=== PATIENT | male | born 1975 | race Caucasian/White ===

== ENCOUNTER 2017-07-20 16:06 | Emergency (ER) | payer SELFPAY ==
[~2017-07-20] VITALS: Wt 72.6 kg
[~2017-07-20 16:06] MED LIST: AMOXICILLIN500 MG PO; ANAPROX DS550 MG PO; AUGMENTIN 875 M1 TAB PO; CLEOCIN150 MG PO; CLINDAMYCIN HC300 MG PO; DOXYCYCLINE MO100 MG PO; FLEXERIL10 MG PO; IBU800 M1 PO; MEDROL DOSEPAK4 MG PO; MOTRIN800 MG; MOTRIN800 MG PO; Motrin,Rufen800 MG PO; NEURONTIN100 MG PO; NKHM; PEN-VEE K500 MG PO; PHENERGAN W/DM120 ML PO; PREDNICOT20 MG PO; SEPTRA DS 800 M1 TAB PO; TRAMADOL HCL50 MG; TRAMADOL HCL50 MG PO; TRIMOX500 MG PO; ULTRAM50 MG PO; VOLTAREN50 M1 PO; ZYRTEC10 MG PO
[2017-07-20 16:40] LABS: BASO % 0.1 % (0.0-1.0); EOS % 0.2 % (1.0-4.0); HEMATOCRIT 41.5 % (42.0-52.0); HEMOGLOBIN 13.5 g/dl (14.0-18.0); LYMPH % 21.6 % (27.0-41.0); MEAN CELL VOLUME 88.1 fl (80.0-94.0); MEAN CORPUSCULAR HGB 28.7 pg (27.0-31.0); MEAN CORPUSCULAR HGB CONC 32.5 g/dl (33.0-37.0); MEAN PLATELET VOLUME 9.7 fl (9.6-12.3); MONO # 0.7 10*3/uL (0.1-1.0); NEUT # 6.4 10*3/uL (2.3-7.9); NEUT % 69.7 % (47.0-73.0); PLATELET COUNT AUTOMATED 392 10*3/uL (130-400); RED BLOOD COUNT 4.71 10*6/uL (4.50-5.90); RED CELL DISTRI WIDTH 15.3 % (0-14.5); WHITE BLOOD COUNT 9.2 10*3/uL (4.8-10.8)
[2017-07-20 16:55] LABS: ALBUMIN 3.7 gm/dl (3.1-4.5); ALKALINE PHOSPHATASE 226 U/L (45-117); BUN 8 mg/dl (7-24); CHLORIDE 99 mmol/L (98-107); CREATININE 0.97 mg/dL (0.70-1.30); POTASSIUM 4.1 mmol/L (3.5-5.1); SGOT/AST 36 IU/L (3-35); SGPT/ALT 105 U/L (12-78); SODIUM 136 mmol/L (136-145); TOTAL PROTEIN 8.2 gm/dL (6.4-8.2)
[2017-07-20 16:58] LABS: LIPASE 78 U/L (73-393)
[2017-07-20 17:23] LABS: BILIRUBIN NEGATIVE (NEGATIVE); BLOOD TRACE-LYSED (NEGATIVE); CLARITY CLEAR (CLEAR); COLOR YELLOW (YELLOW); GLUCOSE NEGATIVE (NEGATIVE); KETONE NEGATIVE (NEGATIVE); LEUKO ESTERASE NEGATIVE (NEGATIVE); NITRITE NEGATIVE (NEGATIVE); PH 6.5 (5.0-9.0); SPECIFIC GRAVITY <= 1.005 (1.005-1.030); UROBILINOGEN 0.2 E.U./dl (0.2-1.0)
[2017-07-20] MEDS ORDERED: ZOFRAN ODT4 MG SL (17:51)
== END 2017-07-20 17:51 | disposition home or self-care (01) ==
LOC: ED 16:06
PROVIDERS: Nurse Practitioner Family
DX: A08.4 Viral intestinal infection, unspecified (principal); F17.200 Nicotine dependence, unspecified, uncomplicated; Z88.8 Allergy status to other drugs, medicaments and biological substances

== ENCOUNTER → 2017-08-16 | Outpatient (CLI) | payer SELFPAY ==
[~2017-08-16] MED LIST changes: +ZOFRAN ODT4 MG SL
[2017-08-16 10:00] LABS: URINE AMPHETAMINES < 1000 (1000ng/ml); URINE BARBITURATES < 200 (200ng/ml); URINE BENZODIAZEPINES < 200 (200ng/ml); URINE CANNABINOIDS (THC) < 50 (50ng/ml); URINE COCAINE < 300 (300ng/ml); URINE METHADONE < 300 (300ng/ml); URINE OPIATES < 300 (300ng/ml); URINE PHENCYCLIDINE < 25 (25ng/ml)
[2017-08-16 10:27] LABS: FREE T4 1.14 ng/dl (0.76-1.46)
[2017-08-16 10:32] LABS: THYROID STIM HORMONE (HS) 0.851 uIU/ml (0.358-4.75)
== END | disposition home or self-care (01) ==
LOC: LAB 09:11
PROVIDERS: Nurse Practitioner Family
DX: Z51.81 Encounter for therapeutic drug level monitoring (principal); Z79.01 Long term (current) use of anticoagulants

== ENCOUNTER 2017-12-06 13:18 | Emergency (ER) | payer SELFPAY ==
[~2017-12-06] VITALS: Ht 187.9 cm; Wt 68.5 kg
[2017-12-06 13:49] LABS: BASO # 0.1 10*3/uL (0.0-0.1); BASO % 0.6 % (0.0-1.0); EOS % 0.2 % (1.0-4.0); HEMATOCRIT 39.3 % (42.0-52.0); HEMOGLOBIN 12.8 g/dl (14.0-18.0); LYMPH # 2.4 10*3/uL (1.3-4.4); LYMPH % 29.7 % (27.0-41.0); MEAN CELL VOLUME 89.1 fl (80.0-94.0); MEAN CORPUSCULAR HGB CONC 32.6 g/dl (33.0-37.0); MONO # 0.5 10*3/uL (0.1-1.0); MONO % 5.7 % (3.0-9.0); NEUT # 5.1 10*3/uL (2.3-7.9); NEUT % 63.4 % (47.0-73.0); PLATELET COUNT AUTOMATED 408 10*3/uL (130-400); RED BLOOD COUNT 4.41 10*6/uL (4.50-5.90); RED CELL DISTRI WIDTH 13.7 % (0-14.5); WHITE BLOOD COUNT 8.1 10*3/uL (4.8-10.8)
[2017-12-06 14:05] LABS: ALBUMIN 3.6 gm/dl (3.1-4.5); ALKALINE PHOSPHATASE 110 U/L (45-117); BUN 8 mg/dl (7-24); CHLORIDE 103 mmol/L (98-107); POTASSIUM 3.7 mmol/L (3.5-5.1); SGOT/AST 15 IU/L (3-35); SGPT/ALT 18 U/L (12-78); SODIUM 138 mmol/L (136-145); TOTAL PROTEIN 7.8 gm/dL (6.4-8.2)
[2017-12-06 14:05] LABS: BILIRUBIN NEGATIVE (NEGATIVE); BLOOD TRACE-INTACT (NEGATIVE); CLARITY CLEAR (CLEAR); COLOR YELLOW (YELLOW); GLUCOSE NEGATIVE (NEGATIVE); KETONE NEGATIVE (NEGATIVE); LEUKO ESTERASE NEGATIVE (NEGATIVE); NITRITE NEGATIVE (NEGATIVE); PH 5.5 (5.0-9.0); SPECIFIC GRAVITY <= 1.005 (1.005-1.030); UROBILINOGEN 0.2 E.U./dl (0.2-1.0)
[2017-12-06 14:13] LABS: URINE AMPHETAMINES < 1000 (1000ng/ml); URINE BARBITURATES < 200 (200ng/ml); URINE BENZODIAZEPINES > 200 (200ng/ml); URINE CANNABINOIDS (THC) < 50 (50ng/ml); URINE COCAINE < 300 (300ng/ml); URINE METHADONE < 300 (300ng/ml); URINE OPIATES < 300 (300ng/ml)
[2017-12-06 14:14] LABS: URINE PHENCYCLIDINE < 25 (25ng/ml)
[2017-12-06 14:26] LABS: RBC 0-2 rbc/hpf (0-2); WBC 0-2 wbc/hpf (0-5)
[2017-12-06] MEDS ORDERED: ROBAXIN500 M1 PO (14:46)
== END 2017-12-06 15:00 | disposition home or self-care (01) ==
LOC: ED 13:18
PROVIDERS: Nurse Practitioner Family
DX: M62.838 Other muscle spasm (principal); M79.601 Pain in right arm; M79.602 Pain in left arm; F17.200 Nicotine dependence, unspecified, uncomplicated; Z88.8 Allergy status to other drugs, medicaments and biological substances

== ENCOUNTER 2018-07-12 09:21 | Emergency (ER) | payer SELFPAY ==
[~2018-07-12] VITALS: Ht 187.9 cm; Wt 74.8 kg
[~2018-07-12 09:21] MED LIST changes: +ROBAXIN500 M1 PO
[2018-07-12 10:00] LABS: BASO % 0.3 % (0.0-1.0); EOS # 0.1 10*3/uL (0.0-0.4); EOS % 1.5 % (1.0-4.0); HEMATOCRIT 37.2 % (42.0-52.0); LYMPH # 2.7 10*3/uL (1.3-4.4); LYMPH % 29.8 % (27.0-41.0); MEAN CELL VOLUME 89.6 fl (80.0-94.0); MEAN CORPUSCULAR HGB 28.9 pg (27.0-31.0); MEAN CORPUSCULAR HGB CONC 32.3 g/dl (33.0-37.0); MEAN PLATELET VOLUME 9.7 fl (9.6-12.3); MONO # 0.8 10*3/uL (0.1-1.0); MONO % 8.2 % (3.0-9.0); NEUT # 5.5 10*3/uL (2.3-7.9); NEUT % 59.8 % (47.0-73.0); PLATELET COUNT AUTOMATED 322 10*3/uL (130-400); RED BLOOD COUNT 4.15 10*6/uL (4.50-5.90); WHITE BLOOD COUNT 9.1 10*3/uL (4.8-10.8)
[2018-07-12 10:08] LABS: ALBUMIN 3.1 gm/dl (3.1-4.5); ALKALINE PHOSPHATASE 113 U/L (45-117); BUN 11 mg/dl (7-24); CHLORIDE 105 mmol/L (98-107); CREATININE 0.79 mg/dL (0.70-1.30); LIPASE 51 U/L (73-393); POTASSIUM 3.7 mmol/L (3.5-5.1); SGOT/AST 20 IU/L (3-35); SGPT/ALT 31 U/L (12-78); SODIUM 139 mmol/L (136-145)
[2018-07-12 11:31] LABS: BILIRUBIN NEGATIVE (NEGATIVE); BLOOD 2+ (NEGATIVE); CLARITY CLEAR (CLEAR); COLOR YELLOW (YELLOW); GLUCOSE NEGATIVE (NEGATIVE); KETONE NEGATIVE (NEGATIVE); LEUKO ESTERASE NEGATIVE (NEGATIVE); NITRITE NEGATIVE (NEGATIVE); SPECIFIC GRAVITY <= 1.005 (1.005-1.030); UROBILINOGEN 0.2 E.U./dl (0.2-1.0)
[2018-07-12] MEDS ORDERED: ANUSOL-HC25 MG R (11:52)
[2018-07-12] MEDS ORDERED: MIRALAX POWDER17 G1 PO (11:52)
== END 2018-07-12 12:14 | disposition home or self-care (01) ==
LOC: ED 09:21
PROVIDERS: Nurse Practitioner Family
DX: K64.4 Residual hemorrhoidal skin tags (principal); K59.00 Constipation, unspecified; R30.0 Dysuria; Z87.442 Personal history of urinary calculi; Z88.8 Allergy status to other drugs, medicaments and biological substances

== ENCOUNTER 2019-02-08 11:04 | Emergency (ER) | payer SELFPAY ==
[~2019-02-08] VITALS: Ht 187.9 cm; Wt 70.3 kg
[~2019-02-08 11:04] MED LIST changes: +ANUSOL-HC25 MG R; +MIRALAX POWDER17 G1 PO
[2019-02-08] MEDS ORDERED: PREDNISONE50 MG PO (12:53)
[2019-02-08] MEDS ORDERED: CYCLOBENZAPRINE10 MG PO (12:53)
[2019-02-08] MEDS ORDERED: IBU800 MG PO (12:53)
== END 2019-02-08 12:53 | disposition home or self-care (01) ==
LOC: ED 11:04
DX: M54.5 Low back pain (principal); Z88.8 Allergy status to other drugs, medicaments and biological substances

== ENCOUNTER 2019-02-25 23:28 | Emergency (ER) | payer SELFPAY ==
[~2019-02-25] VITALS: Ht 187.9 cm; Wt 70.3 kg
[~2019-02-25 23:28] MED LIST changes: +CYCLOBENZAPRINE10 MG PO; +IBU800 MG PO; +PREDNISONE50 MG PO
[2019-02-26 01:48] LABS: BILIRUBIN NEGATIVE (NEGATIVE); BLOOD 1+ (NEGATIVE); CLARITY CLEAR (CLEAR); COLOR YELLOW (YELLOW); GLUCOSE NEGATIVE (NEGATIVE); KETONE NEGATIVE (NEGATIVE); LEUKO ESTERASE NEGATIVE (NEGATIVE); NITRITE NEGATIVE (NEGATIVE); SPECIFIC GRAVITY >= 1.030 (1.005-1.030); UROBILINOGEN 0.2 E.U./dl (0.2-1.0)
[2019-02-26 01:58] LABS: BACTERIA 1+; MUCOUS TRACE
[2019-02-26] MEDS ORDERED: ROBAXIN-750750 MG PO (02:12)
== END 2019-02-26 02:35 | disposition home or self-care (01) ==
LOC: ED 23:28
PROVIDERS: Nurse Practitioner Family
DX: M54.5 Low back pain (principal); Z88.8 Allergy status to other drugs, medicaments and biological substances

== ENCOUNTER 2020-07-26 18:36 | Inpatient (IN) | payer SELFPAY ==
[~2020-07-26] VITALS: Ht 187.9 cm; Wt 51.0 kg
[~2020-07-26 18:36] MED LIST changes: +ROBAXIN-750750 MG PO
[2020-07-26 18:47] VITALS: BP 117/80
[2020-07-26 19:01] LABS: BASO % 0.4 % (0.0-1.0); EOS % 0.2 % (1.0-4.0); HEMATOCRIT 43.3 % (42.0-52.0); LYMPH # 2.6 10*3/uL (1.3-4.4); LYMPH % 25.1 % (27.0-41.0); MEAN CELL VOLUME 87.3 fl (80.0-94.0); MEAN CORPUSCULAR HGB 27.4 pg (27.0-31.0); MEAN CORPUSCULAR HGB CONC 31.4 g/dl (33.0-37.0); MEAN PLATELET VOLUME 11.1 fl (9.6-12.3); MONO # 0.6 10*3/uL (0.1-1.0); MONO % 5.8 % (3.0-9.0); NEUT % 68.2 % (47.0-73.0); PLATELET COUNT AUTOMATED 371 10*3/uL (130-400); RED BLOOD COUNT 4.96 10*6/uL (4.50-5.90); WHITE BLOOD COUNT 10.3 10*3/uL (4.8-10.8)
[2020-07-26 19:12] LABS: ACT PARTIAL THROMBO TIME 26.7 SECONDS (20.0-32.1); INTERNATIONAL NORM RATIO 1.2 (2.0-3.5)
[2020-07-26 19:17] LABS: ALBUMIN 3.6 gm/dl (3.1-4.5); ALKALINE PHOSPHATASE 100 U/L (45-117); BUN 19 mg/dl (7-24); CHLORIDE 104 mmol/L (98-107); CREATININE 1.31 mg/dL (0.70-1.30); POTASSIUM 3.5 mmol/L (3.5-5.1); SGOT/AST 24 IU/L (3-35); SGPT/ALT 34 U/L (12-78); SODIUM 136 mmol/L (136-145); TOTAL PROTEIN 7.9 gm/dL (6.4-8.2); TROPONIN I 0.018 ng/ml (<0.045)
[2020-07-26 20:12] VITALS: BP 118/83
[2020-07-26 20:17] LABS: BILIRUBIN 1+ (Negative); BLOOD Negative (Negative); CLARITY Clear (Clear); COLOR Dark Yellow (Yellow); GLUCOSE Negative (Negative); KETONE Trace (Negative); LEUKO ESTERASE Trace (Negative); NITRITE Negative (Negative); SPECIFIC GRAVITY >= 1.030 (1.001-1.030)
[2020-07-26 20:25] LABS: URINE AMPHETAMINES > 1000 (1000ng/ml); URINE BARBITURATES < 200 (200ng/ml); URINE BENZODIAZEPINES < 200 (200ng/ml); URINE CANNABINOIDS (THC) < 50 (50ng/ml); URINE COCAINE < 300 (300ng/ml); URINE METHADONE < 300 (300ng/ml); URINE OPIATES < 300 (300ng/ml)
[2020-07-26 20:27] LABS: BACTERIA 1+; EPITHELIAL CELLS 0-2; MUCOUS 1+; RBC 0-2 rbc/hpf (0-2)
[2020-07-26 20:28] LABS: URINE PHENCYCLIDINE < 25 (25ng/ml)
[2020-07-26 23:45] VITALS: BP 122/64
[2020-07-27 03:50] VITALS: BP 122/78
[2020-07-27 05:31] VITALS: BP 119/81
[2020-07-27 06:26] LABS: ALBUMIN 3.3 gm/dl (3.1-4.5); BUN 22 mg/dl (7-24); CHLORIDE 106 mmol/L (98-107); POTASSIUM 3.8 mmol/L (3.5-5.1); SODIUM 137 mmol/L (136-145)
[2020-07-27 06:35] LABS: ALKALINE PHOSPHATASE 89 U/L (45-117); CHOLESTEROL 127 mg/dL (<200); LDL CHOLESTEROL 77 mg/dL (9-159); SGOT/AST 23 IU/L (3-35); SGPT/ALT 30 U/L (12-78); TOTAL PROTEIN 7.3 gm/dL (6.4-8.2); TRIGLYCERIDES 74 mg/dl (<150)
[2020-07-27 07:02] LABS: BASO % 0.4 % (0.0-1.0); EOS % 0.4 % (1.0-4.0); HEMATOCRIT 39.2 % (42.0-52.0); LYMPH # 3.3 10*3/uL (1.3-4.4); MEAN CORPUSCULAR HGB 27.6 pg (27.0-31.0); MEAN CORPUSCULAR HGB CONC 32.1 g/dl (33.0-37.0); MEAN PLATELET VOLUME 12.1 fl (9.6-12.3); MONO # 0.8 10*3/uL (0.1-1.0); MONO % 7.2 % (3.0-9.0); NEUT # 6.2 10*3/uL (2.3-7.9); NEUT % 59.6 % (47.0-73.0); PLATELET COUNT AUTOMATED 362 10*3/uL (130-400); RED BLOOD COUNT 4.56 10*6/uL (4.50-5.90); RED CELL DISTRI WIDTH 14.9 % (0-14.5); WHITE BLOOD COUNT 10.4 10*3/uL (4.8-10.8)
[2020-07-27 07:54] VITALS: BP 126/86
[2020-07-27 11:30] VITALS: BP 132/85
[2020-07-27] MEDS ORDERED: LASIX40 MG PO (12:21)
[2020-07-27] MEDS ORDERED: COREG3.125 MG PO (12:21)
[2020-07-27] MEDS ORDERED: ZESTRIL10 MG PO (12:23)
[2020-07-27 16:00] VITALS: BP 105/84
[2020-07-27 20:00] VITALS: BP 112/81
[2020-07-28] VITALS (8 sets, daily range): BP systolic 85–156; BP diastolic 40–74
[2020-07-28 00:21] LABS: ARTERIAL BLOOD GAS PH 7.282 (7.35-7.45); ARTERIAL BLOOD GAS PO2 163.1 (80-90)
[2020-07-28 00:29] LABS: HEMATOCRIT 48.3 % (42.0-52.0); MEAN CORPUSCULAR HGB CONC 29.4 g/dl (33.0-37.0); MEAN PLATELET VOLUME 11.7 fl (9.6-12.3); RED BLOOD COUNT 5.26 10*6/uL (4.50-5.90); RED CELL DISTRI WIDTH 15.4 % (0-14.5); WHITE BLOOD COUNT 10.8 10*3/uL (4.8-10.8)
[2020-07-28 00:30] LABS: MEAN CELL VOLUME 91.8 fl (80.0-94.0); PLATELET COUNT AUTOMATED 201 10*3/uL (130-400)
[2020-07-28 00:47] LABS: ALBUMIN 3.6 gm/dl (3.1-4.5); CREATININE 1.81 mg/dL (0.70-1.30); POTASSIUM 3.9 mmol/L (3.5-5.1); TOTAL PROTEIN 8.2 gm/dL (6.4-8.2)
[2020-07-28 00:56] LABS: ATYPICAL LYMPHS 3 % (0-0); BASOPHILS 1 % (0-1); PLATELET SUFFICIENCY NORMAL (NORMAL); TOTAL CELLS COUNTED 100 #CELLS
[2020-07-28 06:29] LABS: POTASSIUM 4.3 mmol/L (3.5-5.1)
[2020-07-28 06:41] LABS: BASO # 0.1 10*3/uL (0.0-0.1); BASO % 0.4 % (0.0-1.0); EOS % 0.1 % (1.0-4.0); HEMATOCRIT 40.8 % (42.0-52.0); LYMPH # 2.4 10*3/uL (1.3-4.4); LYMPH % 17.4 % (27.0-41.0); MEAN CORPUSCULAR HGB 27.2 pg (27.0-31.0); MEAN CORPUSCULAR HGB CONC 32.1 g/dl (33.0-37.0); MEAN PLATELET VOLUME 11.9 fl (9.6-12.3); MONO # 0.8 10*3/uL (0.1-1.0); MONO % 5.7 % (3.0-9.0); NEUT # 10.3 10*3/uL (2.3-7.9); NEUT % 75.8 % (47.0-73.0); RED BLOOD COUNT 4.82 10*6/uL (4.50-5.90); WHITE BLOOD COUNT 13.5 10*3/uL (4.8-10.8)
[2020-07-28 06:44] LABS: CREATININE 1.59 mg/dL (0.70-1.30)
[2020-07-28 06:58] LABS: MEAN CELL VOLUME 84.6 fl (80.0-94.0); PLATELET COUNT AUTOMATED 372 10*3/uL (130-400)
[2020-07-29] VITALS: BP 108/74
[2020-07-29 04:00] VITALS: BP 101/74
[2020-07-29 08:00] VITALS: BP 101/72
[2020-07-29 12:00] VITALS: BP 112/81; BP 120/68
[2020-07-29 16:00] VITALS: BP 101/64
[2020-07-29 20:00] VITALS: BP 104/69
[2020-07-30] VITALS: BP 88/58
[2020-07-30 04:00] VITALS: BP 97/66
[2020-07-30 05:56] LABS: BUN 37 mg/dl (7-24); CHLORIDE 103 mmol/L (98-107); CREATININE 1.36 mg/dL (0.70-1.30); POTASSIUM 3.5 mmol/L (3.5-5.1); SODIUM 138 mmol/L (136-145)
[2020-07-30 06:17] LABS: HEMATOCRIT 39.3 % (42.0-52.0); MEAN CELL VOLUME 86.8 fl (80.0-94.0); MEAN CORPUSCULAR HGB 27.4 pg (27.0-31.0); MEAN CORPUSCULAR HGB CONC 31.6 g/dl (33.0-37.0); MEAN PLATELET VOLUME 12.3 fl (9.6-12.3); PLATELET COUNT AUTOMATED 316 10*3/uL (130-400); RED BLOOD COUNT 4.53 10*6/uL (4.50-5.90); RED CELL DISTRI WIDTH 15.3 % (0-14.5); WHITE BLOOD COUNT 11.5 10*3/uL (4.8-10.8)
[2020-07-30 07:15] LABS: ATYPICAL LYMPHS 1 % (0-0); TOTAL CELLS COUNTED 100 #CELLS
[2020-07-30 07:16] LABS: BURR CELLS FEW; OVALOCYTES FEW; PLATELET SUFFICIENCY NORMAL (NORMAL)
[2020-07-30 08:00] VITALS: BP 103/69
[2020-07-30 12:00] VITALS: BP 92/63
[2020-07-30 16:00] VITALS: BP 101/64
[2020-07-30 20:00] VITALS: BP 88/62
[2020-07-31 08:00] VITALS: BP 120/52
[2020-07-31 10:30] VITALS: BP 98/80
[2020-07-31 12:00] VITALS: BP 101/66
[2020-07-31] MEDS ORDERED: FUROSEMIDE40 MG PO (12:24)
[2020-07-31] MEDS ORDERED: CARVEDILOL6.25 MG PO (12:24)
[2020-07-31] MEDS ORDERED: VITAMIN D350 MC2 PO (12:24)
[2020-07-31] MEDS ORDERED: HYDROXYZINE HCL25 MG PO (12:24)
[2020-07-31] MEDS ORDERED: K-TAB20 MEQ PO (12:24)
[2020-07-31] MEDS ORDERED: LISINOPRIL5 MG PO (12:24)
== END 2020-07-31 13:22 | disposition home or self-care (01) | DRG 871 ==
LOC: ED 18:36 → EDHOLD 21:26 → 4E 21:26 → EDHOLD 07-27 08:18 → 4E 07-27 10:50 → ICCU 07-27 23:59 → 4E 07-30 22:31
PROVIDERS: Emergency Medicine; Hospitalist; Internal Medicine; Student in an Organized Health Care Education/Training Program; ADMIT Emergency Medicine; ATTEND Emergency Medicine
PROC: 5A12012 Performance of Cardiac Output, Single, Manual (ICD-10-PCS; principal; 2020-07-28)
DX: A41.9 Sepsis, unspecified organism (principal); I50.23 Acute on chronic systolic (congestive) heart failure; J18.9 Pneumonia, unspecified organism; I46.9 Cardiac arrest, cause unspecified; N17.9 Acute kidney failure, unspecified; I47.2 Ventricular tachycardia; M02.30 Reiter's disease, unspecified site; I42.8 Other cardiomyopathies; Z68.1 Body mass index [BMI] 19.9 or less, adult; M96.89 Other intraoperative and postprocedural complications and disorders of the musculoskeletal system; I08.1 Rheumatic disorders of both mitral and tricuspid valves; Y92.238 Other place in hospital as the place of occurrence of the external cause; Y84.8 Other medical procedures as the cause of abnormal reaction of the patient, or of later complication, without mention of misadventure at the time of the procedure; E83.41 Hypermagnesemia; Z20.822 Contact with and (suspected) exposure to COVID-19; F15.10 Other stimulant abuse, uncomplicated; M43.8X4 Other specified deforming dorsopathies, thoracic region; F17.210 Nicotine dependence, cigarettes, uncomplicated; D64.9 Anemia, unspecified; R63.6 Underweight; Z88.8 Allergy status to other drugs, medicaments and biological substances; Z79.899 Other long term (current) drug therapy; Z71.6 Tobacco abuse counseling; Z91.19 Patient's noncompliance with other medical treatment and regimen; Z59.0 Homelessness

== ENCOUNTER 2021-10-07 20:52 | Inpatient (IN) | payer SELFPAY ==
[~2021-10-07] VITALS: Ht 187.9 cm; Wt 70.9 kg
[~2021-10-07 20:52] MED LIST changes: +ALDACTONE25 MG PO; +CARVEDILOL6.25 MG PO; +COREG3.125 MG PO; +ENTRESTO 24 MG1 EACH PO; +FUROSEMIDE40 MG PO; +HYDROXYZINE HCL25 MG PO; +K-TAB20 MEQ PO; +LASIX40 MG PO; +LISINOPRIL5 MG PO; +VIBRA-TAB100 MG PO; +VITAMIN D350 MC2 PO; +ZESTRIL10 MG PO
[2021-10-07 21:11] VITALS: BP 138/104
[2021-10-07 21:33] LABS: BASO % 0.4 % (0.0-1.0); EOS % 0.4 % (1.0-4.0); HEMATOCRIT 43.9 % (42.0-52.0); LYMPH % 26.5 % (27.0-41.0); MEAN CELL VOLUME 89.2 fl (80.0-94.0); MEAN CORPUSCULAR HGB 28.7 pg (27.0-31.0); MEAN CORPUSCULAR HGB CONC 32.1 g/dl (33.0-37.0); MEAN PLATELET VOLUME 11.8 fl (9.6-12.3); MONO # 0.8 10*3/uL (0.1-1.0); MONO % 6.8 % (3.0-9.0); NEUT # 7.4 10*3/uL (2.3-7.9); NEUT % 65.5 % (47.0-73.0); PLATELET COUNT AUTOMATED 337 10*3/uL (130-400); RED BLOOD COUNT 4.92 10*6/uL (4.50-5.90); RED CELL DISTRI WIDTH 15.9 % (0-14.5); WHITE BLOOD COUNT 11.3 10*3/uL (4.8-10.8)
[2021-10-07 21:43] LABS: ACT PARTIAL THROMBO TIME 28.7 SECONDS (20.0-32.1); INTERNATIONAL NORM RATIO 1.1 (2.0-3.5)
[2021-10-07 21:48] LABS: ALKALINE PHOSPHATASE 74 U/L (45-117); BUN 13 mg/dl (7-24); CHLORIDE 110 mmol/L (98-107); CREATININE 1.13 mg/dL (0.70-1.30); SGOT/AST 31 IU/L (3-35); SGPT/ALT 25 U/L (12-78); SODIUM 141 mmol/L (136-145); TOTAL PROTEIN 7.7 gm/dL (6.4-8.2)
[2021-10-07 23:19] VITALS: BP 135/94
[2021-10-08] VITALS (10 sets, daily range): BP systolic 106–137; BP diastolic 70–97
[2021-10-08 05:53] LABS: BUN 13 mg/dl (7-24); CHLORIDE 112 mmol/L (98-107); POTASSIUM 3.8 mmol/L (3.5-5.1); SODIUM 141 mmol/L (136-145)
[2021-10-08 05:56] LABS: ALKALINE PHOSPHATASE 70 U/L (45-117); CREATININE 1.02 mg/dL (0.70-1.30); SGOT/AST 25 IU/L (3-35); SGPT/ALT 24 U/L (12-78); TOTAL PROTEIN 6.9 gm/dL (6.4-8.2)
[2021-10-08 06:04] LABS: FREE T4 1.52 ng/dl (0.76-1.46)
[2021-10-08 06:09] LABS: BASO % 0.3 % (0.0-1.0); EOS % 0.2 % (1.0-4.0); HEMATOCRIT 41.6 % (42.0-52.0); LYMPH # 2.7 10*3/uL (1.3-4.4); LYMPH % 21.8 % (27.0-41.0); MEAN CELL VOLUME 88.9 fl (80.0-94.0); MEAN CORPUSCULAR HGB 28.4 pg (27.0-31.0); MONO # 0.8 10*3/uL (0.1-1.0); MONO % 6.2 % (3.0-9.0); NEUT # 8.7 10*3/uL (2.3-7.9); NEUT % 71.1 % (47.0-73.0); PLATELET COUNT AUTOMATED 294 10*3/uL (130-400); RED BLOOD COUNT 4.68 10*6/uL (4.50-5.90); RED CELL DISTRI WIDTH 15.9 % (0-14.5); WHITE BLOOD COUNT 12.2 10*3/uL (4.8-10.8)
[2021-10-08 07:15] LABS: URINE AMPHETAMINES > 1000 (1000ng/ml); URINE BARBITURATES < 200 (200ng/ml); URINE BENZODIAZEPINES < 200 (200ng/ml); URINE CANNABINOIDS (THC) < 50 (50ng/ml); URINE COCAINE < 300 (300ng/ml); URINE METHADONE < 300 (300ng/ml); URINE OPIATES < 300 (300ng/ml)
[2021-10-08 07:18] LABS: URINE PHENCYCLIDINE < 25 (25ng/ml)
[2021-10-08 12:35] LABS: URINE AMPHETAMINES < 1000 (1000ng/ml); URINE BARBITURATES < 200 (200ng/ml); URINE BENZODIAZEPINES < 200 (200ng/ml); URINE CANNABINOIDS (THC) < 50 (50ng/ml); URINE COCAINE < 300 (300ng/ml); URINE METHADONE < 300 (300ng/ml); URINE OPIATES < 300 (300ng/ml)
[2021-10-08 12:36] LABS: URINE PHENCYCLIDINE < 25 (25ng/ml)
[2021-10-09] VITALS (9 sets, daily range): BP systolic 89–121; BP diastolic 63–90
[2021-10-09 06:16] LABS: BASO % 0.4 % (0.0-1.0); EOS # 0.1 10*3/uL (0.0-0.4); EOS % 0.8 % (1.0-4.0); HEMATOCRIT 39.8 % (42.0-52.0); LYMPH # 3.4 10*3/uL (1.3-4.4); LYMPH % 35.9 % (27.0-41.0); MEAN CELL VOLUME 88.1 fl (80.0-94.0); MEAN CORPUSCULAR HGB 28.1 pg (27.0-31.0); MEAN CORPUSCULAR HGB CONC 31.9 g/dl (33.0-37.0); MEAN PLATELET VOLUME 12.9 fl (9.6-12.3); MONO # 0.7 10*3/uL (0.1-1.0); MONO % 7.5 % (3.0-9.0); NEUT # 5.2 10*3/uL (2.3-7.9); NEUT % 54.9 % (47.0-73.0); PLATELET COUNT AUTOMATED 278 10*3/uL (130-400); RED BLOOD COUNT 4.52 10*6/uL (4.50-5.90); RED CELL DISTRI WIDTH 15.8 % (0-14.5); WHITE BLOOD COUNT 9.4 10*3/uL (4.8-10.8)
[2021-10-09 06:19] LABS: BUN 19 mg/dl (7-24); CHLORIDE 110 mmol/L (98-107); CREATININE 1.08 mg/dL (0.70-1.30); POTASSIUM 3.9 mmol/L (3.5-5.1); SODIUM 141 mmol/L (136-145)
[2021-10-10 00:20] LABS: ALKALINE PHOSPHATASE 68 U/L (45-117); BUN 22 mg/dl (7-24); CHLORIDE 109 mmol/L (98-107); CREATININE 1.26 mg/dL (0.70-1.30); POTASSIUM 4.2 mmol/L (3.5-5.1); SGOT/AST 20 IU/L (3-35); SGPT/ALT 23 U/L (12-78); SODIUM 141 mmol/L (136-145); TOTAL PROTEIN 6.6 gm/dL (6.4-8.2)
[2021-10-10 04:00] VITALS: BP 110/75
[2021-10-10 05:57] LABS: BASO # 0.1 10*3/uL (0.0-0.1); BASO % 0.7 % (0.0-1.0); EOS # 0.1 10*3/uL (0.0-0.4); EOS % 0.7 % (1.0-4.0); HEMATOCRIT 40.2 % (42.0-52.0); LYMPH # 3.4 10*3/uL (1.3-4.4); LYMPH % 33.3 % (27.0-41.0); MEAN CELL VOLUME 89.5 fl (80.0-94.0); MEAN CORPUSCULAR HGB 28.7 pg (27.0-31.0); MEAN CORPUSCULAR HGB CONC 32.1 g/dl (33.0-37.0); MEAN PLATELET VOLUME 12.8 fl (9.6-12.3); MONO # 0.7 10*3/uL (0.1-1.0); MONO % 6.7 % (3.0-9.0); NEUT % 57.8 % (47.0-73.0); PLATELET COUNT AUTOMATED 306 10*3/uL (130-400); RED BLOOD COUNT 4.49 10*6/uL (4.50-5.90); RED CELL DISTRI WIDTH 15.7 % (0-14.5); WHITE BLOOD COUNT 10.3 10*3/uL (4.8-10.8)
[2021-10-10 08:00] VITALS: BP 120/91
[2021-10-10 12:00] VITALS: BP 116/82
[2021-10-10 16:00] VITALS: BP 114/77
[2021-10-10 20:00] VITALS: BP 113/72
[2021-10-11] VITALS: BP 104/74
[2021-10-11 06:19] LABS: BASO # 0.1 10*3/uL (0.0-0.1); BASO % 0.5 % (0.0-1.0); EOS # 0.1 10*3/uL (0.0-0.4); LYMPH # 2.9 10*3/uL (1.3-4.4); LYMPH % 29.1 % (27.0-41.0); MEAN CELL VOLUME 87.3 fl (80.0-94.0); MEAN CORPUSCULAR HGB 28.6 pg (27.0-31.0); MEAN CORPUSCULAR HGB CONC 32.8 g/dl (33.0-37.0); MEAN PLATELET VOLUME 12.4 fl (9.6-12.3); MONO # 0.7 10*3/uL (0.1-1.0); MONO % 7.3 % (3.0-9.0); NEUT % 61.2 % (47.0-73.0); PLATELET COUNT AUTOMATED 301 10*3/uL (130-400); RED BLOOD COUNT 4.58 10*6/uL (4.50-5.90); RED CELL DISTRI WIDTH 15.4 % (0-14.5); WHITE BLOOD COUNT 9.8 10*3/uL (4.8-10.8)
[2021-10-11 08:00] VITALS: BP 108/72
[2021-10-11 12:00] VITALS: BP 104/70
[2021-10-11] MEDS ORDERED: ELIQUIS5 M1 PO (13:05)
[2021-10-11] MEDS ORDERED: LISINOPRIL5 MG PO (13:05)
== END 2021-10-11 13:43 | disposition home or self-care (01) | DRG 871 ==
LOC: ED 20:52 → 4E 10-08 02:07 → EDHOLD 10-08 02:07 → 4E 10-08 03:59 → ICCU 10-09 23:23 → 4E 10-10 20:05 → 5E 10-10 20:09
PROVIDERS: Family Medicine; Internal Medicine; Physician Assistant; ADMIT Family Medicine; ATTEND Family Medicine
DX: A41.9 Sepsis, unspecified organism (principal); I50.23 Acute on chronic systolic (congestive) heart failure; J18.9 Pneumonia, unspecified organism; I26.94 Multiple subsegmental thrombotic pulmonary emboli without acute cor pulmonale; I47.2 Ventricular tachycardia; M02.30 Reiter's disease, unspecified site; B33.24 Viral cardiomyopathy; F15.10 Other stimulant abuse, uncomplicated; I11.0 Hypertensive heart disease with heart failure; F17.210 Nicotine dependence, cigarettes, uncomplicated; E55.9 Vitamin D deficiency, unspecified; R91.1 Solitary pulmonary nodule; Z88.8 Allergy status to other drugs, medicaments and biological substances; Z80.1 Family history of malignant neoplasm of trachea, bronchus and lung; Z91.19 Patient's noncompliance with other medical treatment and regimen

== ENCOUNTER 2021-11-10 20:52 | Inpatient (IN) | payer SELFPAY ==
[~2021-11-10] VITALS: Ht 188 cm; Wt 66.3 kg
[~2021-11-10 20:52] MED LIST changes: +ELIQUIS5 M1 PO
[2021-11-10 21:37] VITALS: BP 121/74
[2021-11-10 23:12] LABS: BASO # 0.1 10*3/uL (0.0-0.1); BASO % 0.4 % (0.0-1.0); EOS # 0.1 10*3/uL (0.0-0.4); EOS % 0.7 % (1.0-4.0); LYMPH % 32.7 % (27.0-41.0); MEAN CELL VOLUME 88.2 fl (80.0-94.0); MEAN CORPUSCULAR HGB 28.6 pg (27.0-31.0); MEAN CORPUSCULAR HGB CONC 32.4 g/dl (33.0-37.0); MEAN PLATELET VOLUME 11.4 fl (9.6-12.3); MONO # 0.8 10*3/uL (0.1-1.0); MONO % 6.8 % (3.0-9.0); NEUT # 7.2 10*3/uL (2.3-7.9); NEUT % 58.9 % (47.0-73.0); PLATELET COUNT AUTOMATED 329 10*3/uL (130-400); RED BLOOD COUNT 4.76 10*6/uL (4.50-5.90); RED CELL DISTRI WIDTH 15.2 % (0-14.5); WHITE BLOOD COUNT 12.2 10*3/uL (4.8-10.8)
[2021-11-10 23:28] LABS: ALKALINE PHOSPHATASE 82 U/L (45-117); BUN 21 mg/dl (7-24); CHLORIDE 108 mmol/L (98-107); CREATININE 1.12 mg/dL (0.70-1.30); POTASSIUM 4.4 mmol/L (3.5-5.1); SGOT/AST 26 IU/L (3-35); SGPT/ALT 44 U/L (12-78); SODIUM 138 mmol/L (136-145); TOTAL PROTEIN 7.2 gm/dL (6.4-8.2)
[2021-11-11] VITALS (7 sets, daily range): BP systolic 97–129; BP diastolic 49–83
[2021-11-11 02:36] LABS: BILIRUBIN 1+ (Negative); BLOOD Negative (Negative); CLARITY Clear (Clear); COLOR Dark Yellow (Yellow); GLUCOSE Negative (Negative); KETONE Trace (Negative); LEUKO ESTERASE Negative (Negative); NITRITE Negative (Negative); SPECIFIC GRAVITY >= 1.030 (1.001-1.030)
[2021-11-11 07:09] LABS: BASO % 0.3 % (0.0-1.0); EOS # 0.1 10*3/uL (0.0-0.4); EOS % 0.7 % (1.0-4.0); HEMATOCRIT 40.4 % (42.0-52.0); LYMPH # 3.2 10*3/uL (1.3-4.4); LYMPH % 27.4 % (27.0-41.0); MEAN CELL VOLUME 89.8 fl (80.0-94.0); MEAN CORPUSCULAR HGB 29.8 pg (27.0-31.0); MEAN CORPUSCULAR HGB CONC 33.2 g/dl (33.0-37.0); MEAN PLATELET VOLUME 11.4 fl (9.6-12.3); MONO # 0.8 10*3/uL (0.1-1.0); MONO % 6.7 % (3.0-9.0); NEUT # 7.5 10*3/uL (2.3-7.9); NEUT % 64.2 % (47.0-73.0); PLATELET COUNT AUTOMATED 340 10*3/uL (130-400); RED CELL DISTRI WIDTH 15.4 % (0-14.5); WHITE BLOOD COUNT 11.8 10*3/uL (4.8-10.8)
[2021-11-11 07:26] LABS: ALKALINE PHOSPHATASE 83 U/L (45-117); BUN 20 mg/dl (7-24); CHLORIDE 106 mmol/L (98-107); CREATININE 1.18 mg/dL (0.70-1.30); SGOT/AST 23 IU/L (3-35); SGPT/ALT 42 U/L (12-78); SODIUM 138 mmol/L (136-145); TOTAL PROTEIN 7.1 gm/dL (6.4-8.2)
[2021-11-12] VITALS: BP 102/58; BP 110/52
[2021-11-12 06:56] LABS: BUN 23 mg/dl (7-24); CHLORIDE 102 mmol/L (98-107); CREATININE 1.32 mg/dL (0.70-1.30); POTASSIUM 3.4 mmol/L (3.5-5.1); SODIUM 138 mmol/L (136-145)
[2021-11-12 08:09] VITALS: BP 108/68
[2021-11-12 12:00] VITALS: BP 107/69
[2021-11-12 16:31] VITALS: BP 108/62
[2021-11-12 20:00] VITALS: BP 112/64
[2021-11-13] VITALS: BP 102/64
[2021-11-13 08:00] VITALS: BP 103/70
[2021-11-13 12:00] VITALS: BP 110/61
[2021-11-13 16:00] VITALS: BP 95/59
[2021-11-13 20:00] VITALS: BP 99/64
[2021-11-14] VITALS: BP 89/56
[2021-11-14 06:25] LABS: BASO # 0.1 10*3/uL (0.0-0.1); BASO % 0.6 % (0.0-1.0); EOS # 0.1 10*3/uL (0.0-0.4); EOS % 0.8 % (1.0-4.0); LYMPH # 3.2 10*3/uL (1.3-4.4); MEAN CELL VOLUME 88.8 fl (80.0-94.0); MEAN CORPUSCULAR HGB CONC 32.7 g/dl (33.0-37.0); MEAN PLATELET VOLUME 10.8 fl (9.6-12.3); MONO # 1.1 10*3/uL (0.1-1.0); MONO % 8.8 % (3.0-9.0); NEUT # 7.4 10*3/uL (2.3-7.9); NEUT % 61.8 % (47.0-73.0); PLATELET COUNT AUTOMATED 373 10*3/uL (130-400); RED BLOOD COUNT 5.52 10*6/uL (4.50-5.90); RED CELL DISTRI WIDTH 15.1 % (0-14.5)
[2021-11-14 06:40] LABS: BUN 21 mg/dl (7-24); CHLORIDE 98 mmol/L (98-107); CREATININE 1.34 mg/dL (0.70-1.30); SODIUM 136 mmol/L (136-145)
[2021-11-14 08:00] VITALS: BP 110/64
[2021-11-14 12:00] VITALS: BP 99/63
[2021-11-14 15:56] VITALS: BP 89/57
[2021-11-14 20:00] VITALS: BP 105/62
[2021-11-15] VITALS: BP 97/65
[2021-11-15 06:18] LABS: BUN 24 mg/dl (7-24); CHLORIDE 100 mmol/L (98-107); POTASSIUM 4.2 mmol/L (3.5-5.1); SODIUM 135 mmol/L (136-145)
[2021-11-15 06:20] LABS: CREATININE 1.12 mg/dL (0.70-1.30)
[2021-11-15 06:26] LABS: BASO # 0.1 10*3/uL (0.0-0.1); BASO % 0.6 % (0.0-1.0); EOS # 0.1 10*3/uL (0.0-0.4); EOS % 1.1 % (1.0-4.0); HEMATOCRIT 47.4 % (42.0-52.0); LYMPH # 3.2 10*3/uL (1.3-4.4); LYMPH % 25.7 % (27.0-41.0); MEAN CELL VOLUME 88.6 fl (80.0-94.0); MEAN CORPUSCULAR HGB 28.6 pg (27.0-31.0); MEAN CORPUSCULAR HGB CONC 32.3 g/dl (33.0-37.0); MEAN PLATELET VOLUME 11.3 fl (9.6-12.3); MONO # 1.4 10*3/uL (0.1-1.0); MONO % 11.1 % (3.0-9.0); NEUT # 7.5 10*3/uL (2.3-7.9); NEUT % 60.4 % (47.0-73.0); PLATELET COUNT AUTOMATED 397 10*3/uL (130-400); RED BLOOD COUNT 5.35 10*6/uL (4.50-5.90); RED CELL DISTRI WIDTH 15.1 % (0-14.5); WHITE BLOOD COUNT 12.4 10*3/uL (4.8-10.8)
[2021-11-15 08:00] VITALS: BP 102/60
[2021-11-15 12:00] VITALS: BP 104/61
[2021-11-15] MEDS ORDERED: LASIX40 MG PO (13:41)
[2021-11-15] MEDS ORDERED: ELIQUIS5 M1 PO (13:41)
[2021-11-15] MEDS ORDERED: ALDACTONE25 MG PO (13:41)
[2021-11-15] MEDS ORDERED: LISINOPRIL5 MG PO (13:41)
[2021-11-15] MEDS ORDERED: K-TAB20 MEQ PO (13:41)
[2021-11-15] MEDS ORDERED: CARVEDILOL6.25 MG PO (13:41)
== END 2021-11-15 14:53 | disposition home or self-care (01) | DRG 291 ==
LOC: ED 20:52 → EDHOLD 11-11 05:01 → 5E 11-11 19:22
PROVIDERS: Emergency Medicine; Internal Medicine; Student in an Organized Health Care Education/Training Program; ADMIT Student in an Organized Health Care Education/Training Program; ATTEND Student in an Organized Health Care Education/Training Program
DX: I11.0 Hypertensive heart disease with heart failure (principal); I50.23 Acute on chronic systolic (congestive) heart failure; E44.0 Moderate protein-calorie malnutrition; R65.10 Systemic inflammatory response syndrome (SIRS) of non-infectious origin without acute organ dysfunction; Z68.1 Body mass index [BMI] 19.9 or less, adult; F17.210 Nicotine dependence, cigarettes, uncomplicated; F15.10 Other stimulant abuse, uncomplicated; D64.9 Anemia, unspecified; E83.41 Hypermagnesemia; E87.8 Other disorders of electrolyte and fluid balance, not elsewhere classified; Z71.6 Tobacco abuse counseling

== ENCOUNTER 2022-07-06 09:48 | Inpatient (IN) | payer OTHER ==
[~2022-07-06] VITALS: Ht 188 cm; Wt 72.7 kg
[~2022-07-06 09:48] MED LIST changes: +AMOX-CLAV 875-1 EACH PO; +CARVEDILOL3.125 MG PO; +JARDIANCE10 MG PO; +LASIX20 MG PO; +LISINOPRIL2.5 MG PO; +LOSARTAN POTASS25 M1 PO; +METOPROLOL SUCC25 M2 PO; +TOPROL XL25 MG PO
[2022-07-06 09:56] VITALS: BP 147/99
[2022-07-06 10:51] LABS: BASO % 0.3 % (0.0-1.0); EOS % 0.1 % (1.0-4.0); HEMATOCRIT 46.4 % (42.0-52.0); LYMPH # 1.7 10*3/uL (1.3-4.4); LYMPH % 13.5 % (27.0-41.0); MEAN CELL VOLUME 85.9 fl (80.0-94.0); MEAN CORPUSCULAR HGB 26.9 pg (27.0-31.0); MEAN CORPUSCULAR HGB CONC 31.3 g/dl (33.0-37.0); MEAN PLATELET VOLUME 11.5 fl (9.6-12.3); MONO # 0.7 10*3/uL (0.1-1.0); MONO % 5.3 % (3.0-9.0); NEUT # 10.1 10*3/uL (2.3-7.9); NEUT % 80.5 % (47.0-73.0); PLATELET COUNT AUTOMATED 288 10*3/uL (130-400); WHITE BLOOD COUNT 12.6 10*3/uL (4.8-10.8)
[2022-07-06 11:02] LABS: ACT PARTIAL THROMBO TIME 29.9 SECONDS (20.0-32.1); INTERNATIONAL NORM RATIO 1.2 (2.0-3.5)
[2022-07-06 11:04] LABS: ALKALINE PHOSPHATASE 121 U/L (46-116); BUN 14 mg/dl (9-23); CHLORIDE 106 mmol/L (98-107); LIPASE 26 U/L (12-53); POTASSIUM 4.2 mmol/L (3.4-5.1); SGPT/ALT 19 U/L (10-49); TOTAL PROTEIN 7.9 gm/dL (6.0-8.0)
[2022-07-06 12:04] VITALS: BP 124/70
[2022-07-06 13:58] VITALS: BP 141/99
[2022-07-06 19:33] LABS: BILIRUBIN Negative (Negative); BLOOD Negative (Negative); CLARITY Clear (Clear); COLOR Yellow (Yellow); GLUCOSE Negative (Negative); KETONE Negative (Negative); LEUKO ESTERASE Negative (Negative); NITRITE Negative (Negative); SPECIFIC GRAVITY <= 1.005 (1.001-1.030)
[2022-07-06 19:41] LABS: URINE AMPHETAMINES Negative (1000ng/ml); URINE BARBITURATES Negative (200ng/ml); URINE BENZODIAZEPINES Negative (200ng/ml); URINE CANNABINOIDS (THC) Negative (50ng/ml); URINE COCAINE Negative (300ng/ml); URINE METHADONE Negative (300ng/ml); URINE OPIATES Negative (300ng/ml); URINE PHENCYCLIDINE Negative (25ng/ml)
[2022-07-06 19:47] VITALS: BP 138/90
[2022-07-06] MEDS ORDERED: LISINOPRIL2.5 MG PO (19:50)
[2022-07-06] MEDS ORDERED: LASIX40 MG PO (19:51)
[2022-07-06] MEDS ORDERED: COREG12.5 M1 PO (19:52)
[2022-07-06 20:30] LABS: EPITHELIAL CELLS 0-2; RBC 0-2 rbc/hpf (0-2); WBC 0-2 wbc/hpf (0-5)
[2022-07-06 23:57] VITALS: BP 124/45
[2022-07-07 04:02] VITALS: BP 128/55
[2022-07-07 06:49] LABS: BASO % 0.3 % (0.0-1.0); EOS % 0.4 % (1.0-4.0); HEMATOCRIT 43.5 % (42.0-52.0); LYMPH # 2.4 10*3/uL (1.3-4.4); LYMPH % 21.6 % (27.0-41.0); MEAN CELL VOLUME 83.3 fl (80.0-94.0); MEAN CORPUSCULAR HGB CONC 32.4 g/dl (33.0-37.0); MEAN PLATELET VOLUME 11.6 fl (9.6-12.3); MONO % 8.8 % (3.0-9.0); NEUT # 7.7 10*3/uL (2.3-7.9); NEUT % 68.5 % (47.0-73.0); PLATELET COUNT AUTOMATED 259 10*3/uL (130-400); RED BLOOD COUNT 5.22 10*6/uL (4.50-5.90); RED CELL DISTRI WIDTH 20.2 % (0-14.5); WHITE BLOOD COUNT 11.2 10*3/uL (4.8-10.8)
[2022-07-07 06:56] LABS: INTERNATIONAL NORM RATIO 1.4 (2.0-3.5)
[2022-07-07 08:02] LABS: ALKALINE PHOSPHATASE 101 U/L (46-116); BUN 17 mg/dl (9-23); CHLORIDE 103 mmol/L (98-107); POTASSIUM 3.3 mmol/L (3.4-5.1); SGPT/ALT 14 U/L (10-49); TOTAL PROTEIN 6.8 gm/dL (6.0-8.0)
[2022-07-07 08:30] VITALS: BP 109/72
[2022-07-07 12:00] VITALS: BP 91/53
[2022-07-07 16:00] VITALS: BP 95/55
[2022-07-07 20:00] VITALS: BP 95/53
[2022-07-08] VITALS: BP 102/66
[2022-07-08 07:29] LABS: BASO # 0.1 10*3/uL (0.0-0.1); BASO % 0.6 % (0.0-1.0); EOS # 0.2 10*3/uL (0.0-0.4); EOS % 1.4 % (1.0-4.0); HEMATOCRIT 44.9 % (42.0-52.0); LYMPH # 2.6 10*3/uL (1.3-4.4); LYMPH % 23.1 % (27.0-41.0); MEAN CELL VOLUME 83.3 fl (80.0-94.0); MEAN CORPUSCULAR HGB 27.6 pg (27.0-31.0); MEAN CORPUSCULAR HGB CONC 33.2 g/dl (33.0-37.0); MONO # 1.1 10*3/uL (0.1-1.0); NEUT # 7.1 10*3/uL (2.3-7.9); NEUT % 64.2 % (47.0-73.0); PLATELET COUNT AUTOMATED 272 10*3/uL (130-400); RED BLOOD COUNT 5.39 10*6/uL (4.50-5.90); WHITE BLOOD COUNT 11.1 10*3/uL (4.8-10.8)
[2022-07-08 08:00] VITALS: BP 109/70
[2022-07-08 08:43] LABS: ALKALINE PHOSPHATASE 91 U/L (46-116); BUN 20 mg/dl (9-23); CHLORIDE 104 mmol/L (98-107); POTASSIUM 3.8 mmol/L (3.4-5.1); SGPT/ALT 11 U/L (10-49); TOTAL PROTEIN 6.5 gm/dL (6.0-8.0)
[2022-07-08 11:58] VITALS: BP 112/77
[2022-07-08 16:00] VITALS: BP 107/75
[2022-07-08 20:00] VITALS: BP 127/79
[2022-07-09] VITALS: BP 110/74
[2022-07-09 08:00] VITALS: BP 114/86
[2022-07-09] MEDS ORDERED: JARDIANCE10 MG PO (11:46)
[2022-07-09] MEDS ORDERED: FUROSEMIDE20 M1 PO (11:46)
[2022-07-09] MEDS ORDERED: LISINOPRIL2.5 MG PO (11:46)
[2022-07-09] MEDS ORDERED: AMOX-CLAV 875-1 EACH PO (11:46)
[2022-07-09] MEDS ORDERED: MUCUS RELIEF600 MG PO (11:46)
[2022-07-09 12:00] VITALS: BP 121/84
[2022-07-09 16:00] VITALS: BP 104/70
[2022-07-09 20:00] VITALS: BP 115/72
[2022-07-09 22:15] VITALS: BP 105/66
[2022-07-10] VITALS: BP 113/75
[2022-07-10 08:00] VITALS: BP 117/77
[2022-07-10] MEDS ORDERED: COREG3.125 MG PO (09:56)
== END 2022-07-10 12:12 | disposition home or self-care (01) | DRG 720 ==
LOC: ED 09:48 → 5E 12:54 → EDHOLD 12:54 → 5E 07-07 08:47
PROVIDERS: Emergency Medicine; Internal Medicine; ADMIT Internal Medicine; ATTEND Internal Medicine
DX: A41.9 Sepsis, unspecified organism (principal); I50.23 Acute on chronic systolic (congestive) heart failure; K81.9 Cholecystitis, unspecified; J69.0 Pneumonitis due to inhalation of food and vomit; R73.9 Hyperglycemia, unspecified; I27.20 Pulmonary hypertension, unspecified; I08.1 Rheumatic disorders of both mitral and tricuspid valves; F17.210 Nicotine dependence, cigarettes, uncomplicated; I11.0 Hypertensive heart disease with heart failure; M02.30 Reiter's disease, unspecified site; Z88.8 Allergy status to other drugs, medicaments and biological substances; Z80.1 Family history of malignant neoplasm of trachea, bronchus and lung; Z79.2 Long term (current) use of antibiotics

== ENCOUNTER 2022-11-19 16:41 | Emergency (ER) | payer SELFPAY ==
[~2022-11-19] VITALS: Ht 187.9 cm; Wt 68.0 kg
[~2022-11-19 16:41] MED LIST changes: +ASPIRIN ADULT L81 M2 PO; +ATORVASTATIN CA40 M1 PO; +BENZONATATE100 M1 PO; +CIPROFLOXACIN500 M4 PO; +COREG12.5 M1 PO; +DOCUSATE SOD100 MG PO; +FUROSEMIDE20 M1 PO; +HYDROCODONE-AC1 EAC1 PO; +MUCUS RELIEF600 MG PO
[2022-11-19 17:22] LABS: BASO % 0.4 % (0.0-1.0); EOS # 0.1 10*3/uL (0.0-0.4); EOS % 0.8 % (1.0-4.0); HEMATOCRIT 38.8 % (42.0-52.0); LYMPH # 2.1 10*3/uL (1.3-4.4); LYMPH % 21.8 % (27.0-41.0); MEAN CELL VOLUME 92.2 fl (80.0-94.0); MEAN CORPUSCULAR HGB 29.9 pg (27.0-31.0); MEAN CORPUSCULAR HGB CONC 32.5 g/dl (33.0-37.0); MEAN PLATELET VOLUME 11.1 fl (9.6-12.3); MONO # 0.8 10*3/uL (0.1-1.0); MONO % 7.8 % (3.0-9.0); NEUT # 6.6 10*3/uL (2.3-7.9); NEUT % 68.8 % (47.0-73.0); PLATELET COUNT AUTOMATED 283 10*3/uL (130-400); RED BLOOD COUNT 4.21 10*6/uL (4.50-5.90); RED CELL DISTRI WIDTH 15.1 % (0-14.5); WHITE BLOOD COUNT 9.7 10*3/uL (4.8-10.8)
[2022-11-19 17:33] LABS: ACT PARTIAL THROMBO TIME 30.4 SECONDS (20.0-32.1); INTERNATIONAL NORM RATIO 1.1 (2.0-3.5)
[2022-11-19 17:51] LABS: ALKALINE PHOSPHATASE 100 U/L (46-116); BUN 10 mg/dl (9-23); CHLORIDE 107 mmol/L (98-107); POTASSIUM 3.7 mmol/L (3.4-5.1); SGPT/ALT 28 U/L (10-49); TOTAL PROTEIN 6.8 gm/dL (6.0-8.0)
== END 2022-11-19 21:24 | disposition home or self-care (01) ==
LOC: ED 16:41
PROVIDERS: Internal Medicine
DX: M94.0 Chondrocostal junction syndrome [Tietze] (principal); F41.9 Anxiety disorder, unspecified; I50.9 Heart failure, unspecified; Z88.8 Allergy status to other drugs, medicaments and biological substances

== ENCOUNTER 2023-01-01 18:39 | Inpatient (IN) | payer SELFPAY ==
[~2023-01-01] VITALS: Ht 187.9 cm; Wt 71.7 kg
[2023-01-01 19:38] VITALS: BP 130/100
[2023-01-01 19:42] LABS: BASO # 0.1 10*3/uL (0.0-0.1); BASO % 0.5 % (0.0-1.0); EOS % 0.1 % (1.0-4.0); HEMATOCRIT 43.4 % (42.0-52.0); LYMPH # 2.9 10*3/uL (1.3-4.4); LYMPH % 25.4 % (27.0-41.0); MEAN CELL VOLUME 91.8 fl (80.0-94.0); MEAN CORPUSCULAR HGB 29.6 pg (27.0-31.0); MEAN CORPUSCULAR HGB CONC 32.3 g/dl (33.0-37.0); MEAN PLATELET VOLUME 11.8 fl (9.6-12.3); MONO # 0.9 10*3/uL (0.1-1.0); MONO % 7.7 % (3.0-9.0); NEUT # 7.6 10*3/uL (2.3-7.9); PLATELET COUNT AUTOMATED 322 10*3/uL (130-400); RED BLOOD COUNT 4.73 10*6/uL (4.50-5.90); RED CELL DISTRI WIDTH 14.4 % (0-14.5); WHITE BLOOD COUNT 11.6 10*3/uL (4.8-10.8)
[2023-01-01 19:53] LABS: ACT PARTIAL THROMBO TIME 30.6 SECONDS (20.0-32.1); INTERNATIONAL NORM RATIO 1.5 (2.0-3.5)
[2023-01-01 20:09] LABS: ALKALINE PHOSPHATASE 100 U/L (46-116); BUN 23 mg/dl (9-23); CHLORIDE 103 mmol/L (98-107); LIPASE 25 U/L (12-53); POTASSIUM 4.8 mmol/L (3.4-5.1); SGPT/ALT 99 U/L (10-49); TOTAL PROTEIN 7.6 gm/dL (6.0-8.0)
[2023-01-01 20:34] LABS: BILIRUBIN 1+ (Negative); BLOOD Negative (Negative); CLARITY Clear (Clear); COLOR Orange (Yellow); GLUCOSE Negative (Negative); KETONE Negative (Negative); LEUKO ESTERASE Negative (Negative); NITRITE Negative (Negative); SPECIFIC GRAVITY 1.025 (1.001-1.030)
[2023-01-01 20:43] LABS: EPITHELIAL CELLS 0-2
[2023-01-01 20:44] LABS: MUCOUS TRACE
[2023-01-01 21:18] VITALS: BP 130/94
[2023-01-01 22:26] VITALS: BP 129/91
[2023-01-02] VITALS (8 sets, daily range): BP systolic 122–160; BP diastolic 59–96
[2023-01-02 06:25] LABS: BASO % 0.3 % (0.0-1.0); EOS % 0.1 % (1.0-4.0); HEMATOCRIT 40.4 % (42.0-52.0); LYMPH # 3.3 10*3/uL (1.3-4.4); LYMPH % 27.2 % (27.0-41.0); MEAN CELL VOLUME 90.2 fl (80.0-94.0); MEAN CORPUSCULAR HGB 29.9 pg (27.0-31.0); MEAN CORPUSCULAR HGB CONC 33.2 g/dl (33.0-37.0); MEAN PLATELET VOLUME 11.7 fl (9.6-12.3); MONO # 1.1 10*3/uL (0.1-1.0); MONO % 8.8 % (3.0-9.0); NEUT # 7.6 10*3/uL (2.3-7.9); NEUT % 63.1 % (47.0-73.0); PLATELET COUNT AUTOMATED 299 10*3/uL (130-400); RED BLOOD COUNT 4.48 10*6/uL (4.50-5.90); RED CELL DISTRI WIDTH 14.3 % (0-14.5)
[2023-01-02 06:51] LABS: ALKALINE PHOSPHATASE 92 U/L (46-116); BUN 23 mg/dl (9-23); CHLORIDE 107 mmol/L (98-107); CHOLESTEROL 146 mg/dL (<200); FREE T4 0.99 ng/dl (0.89-1.76); LDL CHOLESTEROL 97 mg/dL (9-159); POTASSIUM 4.4 mmol/L (3.4-5.1); SGPT/ALT 222 U/L (10-49); TOTAL PROTEIN 6.8 gm/dL (6.0-8.0); TRIGLYCERIDES 68 mg/dl (<150)
[2023-01-03] VITALS: BP 126/94
[2023-01-03 07:10] LABS: BASO % 0.4 % (0.0-1.0); EOS # 0.1 10*3/uL (0.0-0.4); EOS % 0.5 % (1.0-4.0); HEMATOCRIT 41.5 % (42.0-52.0); LYMPH # 2.3 10*3/uL (1.3-4.4); LYMPH % 20.7 % (27.0-41.0); MEAN CELL VOLUME 90.8 fl (80.0-94.0); MONO # 0.9 10*3/uL (0.1-1.0); MONO % 8.2 % (3.0-9.0); NEUT # 7.6 10*3/uL (2.3-7.9); NEUT % 69.5 % (47.0-73.0); PLATELET COUNT AUTOMATED 287 10*3/uL (130-400); RED BLOOD COUNT 4.57 10*6/uL (4.50-5.90); RED CELL DISTRI WIDTH 14.4 % (0-14.5)
[2023-01-03 07:41] LABS: ALKALINE PHOSPHATASE 81 U/L (46-116); BUN 18 mg/dl (9-23); CHLORIDE 107 mmol/L (98-107); POTASSIUM 4.5 mmol/L (3.4-5.1); SGPT/ALT 155 U/L (10-49)
[2023-01-03 08:00] VITALS: BP 121/83
[2023-01-03 12:00] VITALS: BP 93/52
[2023-01-03 16:00] VITALS: BP 110/82
[2023-01-03 20:00] VITALS: BP 114/43
[2023-01-04] VITALS: BP 88/58
[2023-01-04 00:30] VITALS: BP 94/64
[2023-01-04 05:23] LABS: ALKALINE PHOSPHATASE 83 U/L (46-116); BUN 18 mg/dl (9-23); CHLORIDE 105 mmol/L (98-107); POTASSIUM 4.1 mmol/L (3.4-5.1); SGPT/ALT 160 U/L (10-49); TOTAL PROTEIN 6.1 gm/dL (6.0-8.0)
[2023-01-04 06:12] LABS: BASO # 0.1 10*3/uL (0.0-0.1); BASO % 0.5 % (0.0-1.0); EOS # 0.1 10*3/uL (0.0-0.4); EOS % 0.8 % (1.0-4.0); HEMATOCRIT 40.5 % (42.0-52.0); LYMPH # 2.5 10*3/uL (1.3-4.4); LYMPH % 23.6 % (27.0-41.0); MEAN CORPUSCULAR HGB 30.1 pg (27.0-31.0); MEAN CORPUSCULAR HGB CONC 33.1 g/dl (33.0-37.0); MEAN PLATELET VOLUME 12.3 fl (9.6-12.3); MONO # 0.9 10*3/uL (0.1-1.0); MONO % 8.3 % (3.0-9.0); NEUT % 65.9 % (47.0-73.0); PLATELET COUNT AUTOMATED 295 10*3/uL (130-400); RED BLOOD COUNT 4.45 10*6/uL (4.50-5.90); RED CELL DISTRI WIDTH 14.5 % (0-14.5); WHITE BLOOD COUNT 10.5 10*3/uL (4.8-10.8)
[2023-01-04 08:00] VITALS: BP 119/84
[2023-01-04 12:00] VITALS: BP 110/71
[2023-01-04 16:00] VITALS: BP 94/54
[2023-01-04] MEDS ORDERED: CARVEDILOL6.25 MG PO (16:45)
[2023-01-04] MEDS ORDERED: XARELTO1 EACH PO (16:45)
[2023-01-04] MEDS ORDERED: LEVOFLOXACIN750 M2 PO (16:45)
== END 2023-01-04 18:01 | disposition home or self-care (01) | DRG 871 ==
LOC: ED 18:39 → EDHOLD 23:49 → 4E 23:49
PROVIDERS: Internal Medicine; ADMIT Internal Medicine; ATTEND Internal Medicine
DX: A41.9 Sepsis, unspecified organism (principal); I26.99 Other pulmonary embolism without acute cor pulmonale; J15.69 Pneumonia due to other Gram-negative bacteria; E87.20 Acidosis, unspecified; I42.9 Cardiomyopathy, unspecified; J91.8 Pleural effusion in other conditions classified elsewhere; I50.40 Unspecified combined systolic (congestive) and diastolic (congestive) heart failure; M02.30 Reiter's disease, unspecified site; F17.210 Nicotine dependence, cigarettes, uncomplicated; I11.0 Hypertensive heart disease with heart failure; E80.6 Other disorders of bilirubin metabolism; R74.01 Elevation of levels of liver transaminase levels; R79.82 Elevated C-reactive protein (CRP); E11.9 Type 2 diabetes mellitus without complications; Z88.8 Allergy status to other drugs, medicaments and biological substances; Z88.1 Allergy status to other antibiotic agents; Z80.1 Family history of malignant neoplasm of trachea, bronchus and lung; Z86.711 Personal history of pulmonary embolism

== ENCOUNTER 2023-01-07 18:16 | Emergency (ER) | payer SELFPAY ==
[~2023-01-07] VITALS: Ht 187.9 cm; Wt 71.7 kg
[~2023-01-07 18:16] MED LIST changes: +LEVOFLOXACIN750 M2 PO; +XARELTO1 EACH PO
[2023-01-07] MEDS ORDERED: CARVEDILOL6.25 MG PO (18:54)
[2023-01-07 19:06] LABS: BASO % 0.4 % (0.0-1.0); EOS # 0.1 10*3/uL (0.0-0.4); EOS % 0.6 % (1.0-4.0); HEMATOCRIT 39.7 % (42.0-52.0); LYMPH # 2.3 10*3/uL (1.3-4.4); LYMPH % 23.9 % (27.0-41.0); MEAN CELL VOLUME 90.4 fl (80.0-94.0); MEAN CORPUSCULAR HGB 29.6 pg (27.0-31.0); MEAN CORPUSCULAR HGB CONC 32.7 g/dl (33.0-37.0); MEAN PLATELET VOLUME 10.8 fl (9.6-12.3); MONO # 0.8 10*3/uL (0.1-1.0); MONO % 8.5 % (3.0-9.0); NEUT # 6.4 10*3/uL (2.3-7.9); NEUT % 65.9 % (47.0-73.0); PLATELET COUNT AUTOMATED 321 10*3/uL (130-400); RED BLOOD COUNT 4.39 10*6/uL (4.50-5.90); RED CELL DISTRI WIDTH 14.6 % (0-14.5); WHITE BLOOD COUNT 9.7 10*3/uL (4.8-10.8)
[2023-01-07 19:19] LABS: ACT PARTIAL THROMBO TIME 48.9 SECONDS (20.0-32.1); INTERNATIONAL NORM RATIO 2.2 (2.0-3.5)
[2023-01-07 19:23] LABS: ALKALINE PHOSPHATASE 97 U/L (46-116); BUN 19 mg/dl (9-23); CHLORIDE 104 mmol/L (98-107); LIPASE 29 U/L (12-53); POTASSIUM 3.9 mmol/L (3.4-5.1); SGPT/ALT 270 U/L (5-49)
[2023-01-07 19:56] LABS: BILIRUBIN Negative (Negative); BLOOD Negative (Negative); CLARITY Clear (Clear); COLOR Yellow (Yellow); GLUCOSE Negative (Negative); KETONE Negative (Negative); LEUKO ESTERASE Negative (Negative); NITRITE Negative (Negative); SPECIFIC GRAVITY 1.015 (1.001-1.030)
[2023-01-07 20:03] LABS: MUCOUS 1+; WBC 0-2 wbc/hpf (0-5)
== END 2023-01-07 22:24 | disposition home or self-care (01) ==
LOC: ED 18:16
PROVIDERS: Physician Assistant Medical
DX: I50.9 Heart failure, unspecified (principal); F41.9 Anxiety disorder, unspecified; I25.2 Old myocardial infarction; Z88.8 Allergy status to other drugs, medicaments and biological substances; Z98.890 Other specified postprocedural states; F17.210 Nicotine dependence, cigarettes, uncomplicated

== ENCOUNTER 2023-01-29 01:13 | Emergency (ER) | payer SELFPAY ==
[~2023-01-29] VITALS: Ht 187.9 cm; Wt 68.0 kg
[~2023-01-29 01:13] MED LIST changes: +ASPIRIN ADULT L81 M1 PO; +K-TAB10 MEQ PO; +XARELTO10 MG PO
[2023-01-29 02:00] LABS: BASO # 0.1 10*3/uL (0.0-0.1); BASO % 0.6 % (0.0-1.0); EOS # 0.1 10*3/uL (0.0-0.4); EOS % 1.3 % (1.0-4.0); HEMATOCRIT 43.4 % (42.0-52.0); LYMPH # 2.8 10*3/uL (1.3-4.4); MEAN CELL VOLUME 91.9 fl (80.0-94.0); MEAN CORPUSCULAR HGB 29.4 pg (27.0-31.0); MEAN PLATELET VOLUME 10.9 fl (9.6-12.3); MONO # 0.6 10*3/uL (0.1-1.0); MONO % 7.3 % (3.0-9.0); NEUT # 4.6 10*3/uL (2.3-7.9); NEUT % 56.3 % (47.0-73.0); PLATELET COUNT AUTOMATED 284 10*3/uL (130-400); RED BLOOD COUNT 4.72 10*6/uL (4.50-5.90); RED CELL DISTRI WIDTH 14.3 % (0-14.5); WHITE BLOOD COUNT 8.2 10*3/uL (4.8-10.8)
[2023-01-29 02:22] LABS: ALKALINE PHOSPHATASE 98 U/L (46-116); BUN 18 mg/dl (9-23); CHLORIDE 107 mmol/L (98-107); LIPASE 35 U/L (12-53); POTASSIUM 3.6 mmol/L (3.4-5.1); SGPT/ALT 24 U/L (5-49); TOTAL PROTEIN 7.6 gm/dL (6.0-8.0)
== END 2023-01-29 05:29 | disposition home or self-care (01) ==
LOC: ED 01:13
PROVIDERS: Internal Medicine
DX: R05.9 Cough, unspecified (principal); R06.02 Shortness of breath; R11.0 Nausea; F41.9 Anxiety disorder, unspecified; I25.2 Old myocardial infarction; I50.9 Heart failure, unspecified; Z88.8 Allergy status to other drugs, medicaments and biological substances; F15.90 Other stimulant use, unspecified, uncomplicated; F17.290 Nicotine dependence, other tobacco product, uncomplicated; Z20.822 Contact with and (suspected) exposure to COVID-19

== ENCOUNTER 2023-03-27 12:19 | Inpatient (IN) | payer SELFPAY ==
[~2023-03-27] VITALS: Ht 187.9 cm; Wt 67.7 kg
[2023-03-27 12:32] VITALS: BP 114/78
[2023-03-27 12:57] LABS: BASO % 0.4 % (0.0-1.0); EOS % 0.1 % (1.0-4.0); HEMATOCRIT 45.9 % (42.0-52.0); LYMPH # 1.5 10*3/uL (1.3-4.4); LYMPH % 19.6 % (27.0-41.0); MEAN CELL VOLUME 90.4 fl (80.0-94.0); MEAN CORPUSCULAR HGB CONC 30.9 g/dl (33.0-37.0); MEAN PLATELET VOLUME 10.9 fl (9.6-12.3); MONO # 0.9 10*3/uL (0.1-1.0); MONO % 11.1 % (3.0-9.0); NEUT # 5.3 10*3/uL (2.3-7.9); NEUT % 68.5 % (47.0-73.0); PLATELET COUNT AUTOMATED 343 10*3/uL (130-400); RED BLOOD COUNT 5.08 10*6/uL (4.50-5.90); RED CELL DISTRI WIDTH 16.1 % (0-14.5); WHITE BLOOD COUNT 7.7 10*3/uL (4.8-10.8)
[2023-03-27 13:14] LABS: ACT PARTIAL THROMBO TIME 34.5 SECONDS (20.0-32.1)
[2023-03-27 13:28] LABS: ALKALINE PHOSPHATASE 85 U/L (46-116); BUN 15 mg/dl (9-23); CHLORIDE 105 mmol/L (98-107); POTASSIUM 3.6 mmol/L (3.4-5.1); SGPT/ALT 26 U/L (5-49); TOTAL PROTEIN 7.6 gm/dL (6.0-8.0)
[2023-03-27 14:11] VITALS: BP 101/62
[2023-03-27 19:48] VITALS: BP 108/74
[2023-03-27 21:57] VITALS: BP 104/79
[2023-03-28 01:57] VITALS: BP 98/69
[2023-03-28 05:05] VITALS: BP 92/63
[2023-03-28 05:25] LABS: BUN 17 mg/dl (9-23); CHLORIDE 104 mmol/L (98-107); POTASSIUM 3.7 mmol/L (3.4-5.1)
[2023-03-28 06:27] LABS: BASO % 0.6 % (0.0-1.0); EOS # 0.1 10*3/uL (0.0-0.4); EOS % 1.1 % (1.0-4.0); HEMATOCRIT 40.4 % (42.0-52.0); LYMPH # 3.2 10*3/uL (1.3-4.4); LYMPH % 45.5 % (27.0-41.0); MEAN CELL VOLUME 90.2 fl (80.0-94.0); MEAN CORPUSCULAR HGB 27.7 pg (27.0-31.0); MEAN CORPUSCULAR HGB CONC 30.7 g/dl (33.0-37.0); MEAN PLATELET VOLUME 11.8 fl (9.6-12.3); MONO # 0.7 10*3/uL (0.1-1.0); MONO % 9.5 % (3.0-9.0); PLATELET COUNT AUTOMATED 319 10*3/uL (130-400); RED BLOOD COUNT 4.48 10*6/uL (4.50-5.90); RED CELL DISTRI WIDTH 16.2 % (0-14.5); WHITE BLOOD COUNT 7.1 10*3/uL (4.8-10.8)
[2023-03-28 08:36] VITALS: BP 101/70
[2023-03-28 20:10] VITALS: BP 97/69
[2023-03-29] VITALS: BP 93/76
[2023-03-29 08:00] VITALS: BP 114/77
[2023-03-29 12:00] VITALS: BP 106/67
[2023-03-29 16:00] VITALS: BP 96/67
[2023-03-29 20:00] VITALS: BP 95/55
[2023-03-29 20:53] VITALS: BP 108/78
[2023-03-30] VITALS: BP 101/64
[2023-03-30 08:00] VITALS: BP 125/83
[2023-03-30] MEDS ORDERED: COREG3.125 MG PO (12:13)
[2023-03-30] MEDS ORDERED: LASIX40 MG PO (12:13)
[2023-03-30] MEDS ORDERED: ALDACTONE25 MG PO (12:13)
[2023-03-30] MEDS ORDERED: LISINOPRIL2.5 MG PO (12:13)
[2023-03-30] MEDS ORDERED: HYDROCODONE-AC1 EAC1 PO (12:13)
[2023-03-30] MEDS ORDERED: JARDIANCE10 MG PO (12:13)
[2023-03-30] MEDS ORDERED: XARE20MG PO (12:13)
[2023-03-30] MEDS ORDERED: K-TAB20 MEQ PO (12:13)
== END 2023-03-30 11:34 | disposition home or self-care (01) | DRG 291 ==
LOC: ED 12:19 → 5E 13:34 → EDHOLD 13:34 → 5E 03-28 19:54
PROVIDERS: Emergency Medicine; Registered Nurse; ADMIT Internal Medicine; ATTEND Internal Medicine
DX: I11.0 Hypertensive heart disease with heart failure (principal); I50.23 Acute on chronic systolic (congestive) heart failure; I27.82 Chronic pulmonary embolism; I25.118 Atherosclerotic heart disease of native coronary artery with other forms of angina pectoris; K81.1 Chronic cholecystitis; I42.9 Cardiomyopathy, unspecified; Z80.1 Family history of malignant neoplasm of trachea, bronchus and lung; Z91.199 Patient's noncompliance with other medical treatment and regimen due to unspecified reason; Z88.8 Allergy status to other drugs, medicaments and biological substances; Z88.1 Allergy status to other antibiotic agents

== ENCOUNTER 2023-11-08 01:16 | Inpatient (IN) | payer SELFPAY ==
[~2023-11-08] VITALS: Ht 187.9 cm; Wt 69.9 kg
[2023-11-08] VITALS (7 sets, daily range): BP systolic 119–152; BP diastolic 84–94
[~2023-11-08 01:16] MED LIST changes: +XARE20MG PO
[2023-11-08 01:53] LABS: BASO % 0.3 % (0.0-1.0); EOS # 0.1 10*3/uL (0.0-0.4); EOS % 0.5 % (1.0-4.0); HEMATOCRIT 37.3 % (42.0-52.0); LYMPH # 2.5 10*3/uL (1.3-4.4); LYMPH % 26.7 % (27.0-41.0); MEAN CELL VOLUME 91.6 fl (80.0-94.0); MEAN CORPUSCULAR HGB 29.5 pg (27.0-31.0); MEAN CORPUSCULAR HGB CONC 32.2 g/dl (33.0-37.0); MEAN PLATELET VOLUME 11.3 fl (9.6-12.3); MONO # 0.6 10*3/uL (0.1-1.0); MONO % 6.6 % (3.0-9.0); NEUT % 65.4 % (47.0-73.0); PLATELET COUNT AUTOMATED 295 10*3/uL (130-400); RED BLOOD COUNT 4.07 10*6/uL (4.50-5.90); RED CELL DISTRI WIDTH 14.6 % (0-14.5); WHITE BLOOD COUNT 9.3 10*3/uL (4.8-10.8)
[2023-11-08 02:14] LABS: ALKALINE PHOSPHATASE 95 U/L (46-116); BUN 19 mg/dl (9-23); CHLORIDE 108 mmol/L (98-107); POTASSIUM 3.7 mmol/L (3.4-5.1); SGPT/ALT 33 U/L (5-49); TOTAL PROTEIN 6.6 gm/dL (6.0-8.0)
[2023-11-08] MEDS ORDERED: SODIUM CHLORIDE 0.9% 100 ML BAG IV ONE (04:05)
[2023-11-08] MEDS ORDERED: IOHEXOL 350 MG/ML 100 ML VIAL IV ONE (04:05)
[2023-11-08] MEDS ORDERED: HEPARIN SODIUM 250 ML IV SCH (04:55)
[2023-11-08] MEDS ORDERED: MORPHINE Sulfate 2 MG/ML SYR IV ONE (08:30)
[2023-11-08] MEDS ORDERED: ACETAMINOPHEN 325 MG TAB PO PRN (09:20)
[2023-11-08] MEDS ORDERED: BISACODYL 5 MG TAB PO PRN (09:20)
[2023-11-08] MEDS ORDERED: CARVEDILOL 3.125 MG TAB PO SCH (10:00)
[2023-11-08] MEDS ORDERED: RIVAROXABAN 20 MG TAB PO SCH (10:00)
[2023-11-08] MEDS ORDERED: SPIRONOLACTONE 25 MG TAB PO SCH (10:00)
[2023-11-08] MEDS ORDERED: EMPAGLIFLOZIN 10 MG TABLET PO SCH (10:00)
[2023-11-08] MEDS ORDERED: LISINOPRIL 2.5 MG TAB PO SCH (10:00)
[2023-11-08] MEDS ORDERED: Acetaminophen/Hydrocodone ES 7.5/325 tablet PO PRN (14:55)
[2023-11-09] VITALS: BP 140/87
[2023-11-09 06:09] LABS: BASO % 0.3 % (0.0-1.0); EOS # 0.1 10*3/uL (0.0-0.4); EOS % 0.7 % (1.0-4.0); HEMATOCRIT 39.5 % (42.0-52.0); LYMPH # 2.5 10*3/uL (1.3-4.4); LYMPH % 25.4 % (27.0-41.0); MEAN CELL VOLUME 93.8 fl (80.0-94.0); MEAN CORPUSCULAR HGB 29.5 pg (27.0-31.0); MEAN CORPUSCULAR HGB CONC 31.4 g/dl (33.0-37.0); MEAN PLATELET VOLUME 12.2 fl (9.6-12.3); MONO # 0.6 10*3/uL (0.1-1.0); MONO % 6.4 % (3.0-9.0); NEUT # 6.4 10*3/uL (2.3-7.9); NEUT % 66.8 % (47.0-73.0); PLATELET COUNT AUTOMATED 278 10*3/uL (130-400); RED BLOOD COUNT 4.21 10*6/uL (4.50-5.90); RED CELL DISTRI WIDTH 14.7 % (0-14.5); WHITE BLOOD COUNT 9.7 10*3/uL (4.8-10.8)
[2023-11-09 07:23] LABS: VITAMIN D, 25-HYDROXY 25.7 ng/mL (30-100)
[2023-11-09 07:31] LABS: ALKALINE PHOSPHATASE 91 U/L (46-116); BUN 16 mg/dl (9-23); CHLORIDE 106 mmol/L (98-107); CHOLESTEROL 144 mg/dL (<200); LDL CHOLESTEROL 94 mg/dL (9-159); POTASSIUM 4.3 mmol/L (3.4-5.1); SGPT/ALT 33 U/L (5-49); TOTAL PROTEIN 6.7 gm/dL (6.0-8.0); TRIGLYCERIDES 72 mg/dl (<150)
[2023-11-09 08:00] VITALS: BP 134/78
[2023-11-09] MEDS ORDERED: FUROSEMIDE 40 MG/4 ML VIAL IV SCH (10:00)
[2023-11-09] MEDS ORDERED: Cholecalciferol 2,000 UNIT TABLET (50 MCG) PO SCH (10:00)
[2023-11-09 12:00] VITALS: BP 106/73
[2023-11-09 16:00] VITALS: BP 130/79
[2023-11-09 20:00] VITALS: BP 146/89
[2023-11-10] VITALS: BP 142/82
[2023-11-10 08:00] VITALS: BP 142/84
[2023-11-10] MEDS ORDERED: FUROSEMIDE 40 MG TAB PO SCH ×2 (10:00)
[2023-11-10] MEDS ORDERED: HYDROCODONE-AC1 EAC2 PO (10:50)
[2023-11-10] MEDS ORDERED: FUROSEMIDE40 MG PO (10:50)
[2023-11-10] MEDS ORDERED: XARE20MG PO (10:50)
[2023-11-10] MEDS ORDERED: LISINOPRIL2.5 MG PO (10:50)
[2023-11-10] MEDS ORDERED: VITAMIN D350 MCG PO (10:50)
[2023-11-10 12:00] VITALS: BP 140/82
== END 2023-11-10 12:43 | disposition home or self-care (01) | DRG 175 ==
LOC: ED 01:16 → 4E 07:23 → EDHOLD 07:23 → 4E 20:14
PROVIDERS: Internal Medicine; Registered Nurse; ADMIT Internal Medicine; ATTEND Internal Medicine
DX: I26.99 Other pulmonary embolism without acute cor pulmonale (principal); I50.23 Acute on chronic systolic (congestive) heart failure; I42.9 Cardiomyopathy, unspecified; R65.10 Systemic inflammatory response syndrome (SIRS) of non-infectious origin without acute organ dysfunction; D50.9 Iron deficiency anemia, unspecified; I11.0 Hypertensive heart disease with heart failure; I25.10 Atherosclerotic heart disease of native coronary artery without angina pectoris; F17.210 Nicotine dependence, cigarettes, uncomplicated; E87.8 Other disorders of electrolyte and fluid balance, not elsewhere classified; I34.0 Nonrheumatic mitral (valve) insufficiency; I27.20 Pulmonary hypertension, unspecified; F12.90 Cannabis use, unspecified, uncomplicated; J44.9 Chronic obstructive pulmonary disease, unspecified; Z88.8 Allergy status to other drugs, medicaments and biological substances; Z80.1 Family history of malignant neoplasm of trachea, bronchus and lung; Z91.199 Patient's noncompliance with other medical treatment and regimen due to unspecified reason

== ENCOUNTER 2024-03-19 06:09 | Emergency (ER) | payer OTHER ==
[~2024-03-19] VITALS: Ht 187.9 cm; Wt 81.6 kg
[~2024-03-19 06:09] MED LIST changes: +HYDROCODONE-AC1 EAC2 PO; +PREDNISONE10 MG PO; +VITAMIN D350 MCG PO
[2024-03-19 06:33] LABS: BASO % 0.4 % (0.0-1.0); EOS # 0.1 10*3/uL (0.0-0.4); EOS % 1.1 % (1.0-4.0); HEMATOCRIT 38.7 % (42.0-52.0); MEAN CORPUSCULAR HGB 27.9 pg (27.0-31.0); MEAN PLATELET VOLUME 10.8 fl (9.6-12.3); MONO # 0.7 10*3/uL (0.1-1.0); MONO % 7.4 % (3.0-9.0); NEUT # 6.5 10*3/uL (2.3-7.9); NEUT % 64.7 % (47.0-73.0); PLATELET COUNT AUTOMATED 337 10*3/uL (130-400); RED BLOOD COUNT 4.45 10*6/uL (4.50-5.90)
[2024-03-19 06:54] LABS: ALKALINE PHOSPHATASE 86 U/L (46-116); BUN 20 mg/dl (9-23); CHLORIDE 106 mmol/L (98-107); POTASSIUM 3.2 mmol/L (3.4-5.1); SGPT/ALT 21 U/L (5-49); TOTAL PROTEIN 6.5 gm/dL (6.0-8.0)
[2024-03-19] MEDS ORDERED: POTASSIUM CHLORIDE 20 MEQ TAB PO ONE (07:25)
[2024-03-19 08:00] VITALS: BP 126/84
[2024-03-19] MEDS ORDERED: LASIX40 MG PO (09:11)
[2024-03-19] MEDS ORDERED: XARE20MG PO (09:11)
== END 2024-03-19 09:24 | disposition home or self-care (01) ==
LOC: ED 06:09
PROVIDERS: Internal Medicine
DX: R06.02 Shortness of breath (principal); R60.0 Localized edema; R00.0 Tachycardia, unspecified; I50.43 Acute on chronic combined systolic (congestive) and diastolic (congestive) heart failure; F17.210 Nicotine dependence, cigarettes, uncomplicated; Z88.1 Allergy status to other antibiotic agents; Z88.8 Allergy status to other drugs, medicaments and biological substances; Z79.899 Other long term (current) drug therapy; Z95.0 Presence of cardiac pacemaker

== ENCOUNTER 2024-06-20 18:26 | Emergency (ER) | payer MEDICAID ==
[~2024-06-20] VITALS: Ht 187.9 cm; Wt 68.0 kg
[~2024-06-20 18:26] MED LIST changes: +BUMETANIDE1 MG PO; +COZAAR25 M1 PO; +VIBRAMYCIN100 MG PO; +Vitamin D (1,000 UNI PO
[2024-06-20 20:22] LABS: BASO # 0.1 10*3/uL (0.0-0.1); BASO % 0.6 % (0.0-1.0); EOS # 0.1 10*3/uL (0.0-0.4); EOS % 1.1 % (1.0-4.0); HEMATOCRIT 44.5 % (42.0-52.0); MEAN CELL VOLUME 87.3 fl (80.0-94.0); MEAN CORPUSCULAR HGB 28.4 pg (27.0-31.0); MEAN CORPUSCULAR HGB CONC 32.6 g/dl (33.0-37.0); MONO % 10.2 % (3.0-9.0); NEUT # 6.4 10*3/uL (2.3-7.9); NEUT % 65.6 % (47.0-73.0); PLATELET COUNT AUTOMATED 327 10*3/uL (130-400); WHITE BLOOD COUNT 9.8 10*3/uL (4.8-10.8)
[2024-06-20 20:45] LABS: ALKALINE PHOSPHATASE 85 U/L (46-116); BUN 22 mg/dl (9-23); CHLORIDE 100 mmol/L (98-107); POTASSIUM 3.2 mmol/L (3.4-5.1); SGPT/ALT 17 U/L (5-49); TOTAL PROTEIN 7.6 gm/dL (6.0-8.0)
[2024-06-20] MEDS ORDERED: POTASSIUM CHLORIDE 20 MEQ TAB PO ONE (21:45)
== END 2024-06-20 21:54 | disposition home or self-care (01) ==
LOC: ED 18:26
PROVIDERS: Emergency Medicine
DX: R10.32 Left lower quadrant pain (principal); E87.6 Hypokalemia; R22.2 Localized swelling, mass and lump, trunk; J44.9 Chronic obstructive pulmonary disease, unspecified; I11.0 Hypertensive heart disease with heart failure; I50.23 Acute on chronic systolic (congestive) heart failure; Z86.711 Personal history of pulmonary embolism; Z88.1 Allergy status to other antibiotic agents; Z88.8 Allergy status to other drugs, medicaments and biological substances; Z79.899 Other long term (current) drug therapy; Z79.82 Long term (current) use of aspirin; Z95.0 Presence of cardiac pacemaker; Z87.891 Personal history of nicotine dependence

== ENCOUNTER 2024-07-10 20:10 | Emergency (ER) | payer MEDICAID ==
[~2024-07-10] VITALS: Ht 187.9 cm; Wt 72.6 kg
[2024-07-10] MEDS ORDERED: methylPREDNISolone sod succ 125 MG VIAL IM ONE (21:05)
[2024-07-10] MEDS ORDERED: PREDNISONE20 M1 PO (21:06)
[2024-07-10] MEDS ORDERED: ZITHROMAX250 MG PO (21:06)
[2024-07-10] MEDS ORDERED: AZITHROMYCIN 250 MG TAB PO ONE (21:10)
[2024-07-10] MEDS ORDERED: Acetaminophen/Hydrocodone 5 MG/325 MG TABLET PO ONE (21:15)
== END 2024-07-10 21:25 | disposition home or self-care (01) ==
LOC: ED 20:10
DX: J18.9 Pneumonia, unspecified organism (principal); J40 Bronchitis, not specified as acute or chronic; F41.9 Anxiety disorder, unspecified; Z79.82 Long term (current) use of aspirin; Z79.899 Other long term (current) drug therapy; Z88.1 Allergy status to other antibiotic agents; Z88.8 Allergy status to other drugs, medicaments and biological substances; Z98.890 Other specified postprocedural states

== ENCOUNTER 2024-09-28 20:17 | Inpatient (IN) | payer OTHER ==
[~2024-09-28] VITALS: Ht 187.9 cm; Wt 85.4 kg
[~2024-09-28 20:17] MED LIST changes: +PREDNISONE20 M1 PO; +ZITHROMAX250 MG PO
[2024-09-28 20:29] VITALS: BP 122/90
[2024-09-28 20:54] LABS: BASO # 0.0 10*3/uL (0.0-0.1); BASO % 0.5 % (0.0-1.0); EOS # 0.0 10*3/uL (0.0-0.4); EOS % 0.4 % (1.0-4.0); MEAN CELL VOLUME 91.9 fl (80.0-94.0); MEAN CORPUSCULAR HGB 29.4 pg (27.0-31.0); MEAN PLATELET VOLUME 11.1 fl (9.6-12.3); MONO # 0.5 10*3/uL (0.1-1.0); MONO % 6.3 % (3.0-9.0); NEUT # 5.4 10*3/uL (2.3-7.9); NEUT % 69.8 % (47.0-73.0); NUCLEATED RED BLOOD CELL 0.0 % (0.0-0.0); NUCLEATED RED BLOOD CELL 0.0 10*3/uL (0.0-0.0); PLATELET COUNT AUTOMATED 284 10*3/uL (130-400); RED CELL DISTRI WIDTH 14.5 % (0-14.5)
[2024-09-28 21:16] LABS: BUN 21 mg/dl (9-23); SGPT/ALT 16 U/L (5-49)
[2024-09-28] MEDS ORDERED: POTASSIUM CHLORIDE 20 MEQ TAB PO ONE (23:45)
[2024-09-28] MEDS ORDERED: BUMETANIDE 1 MG/4 ML VIAL IV ONE (23:55)
[2024-09-29 04:26] VITALS: BP 112/83
[2024-09-29] MEDS ORDERED: BISACODYL 10 MG SUPP R PRN (05:20)
[2024-09-29] MEDS ORDERED: ACETAMINOPHEN 650 MG SUPP R PRN (05:20)
[2024-09-29] MEDS ORDERED: BISACODYL 5 MG TAB PO PRN (05:20)
[2024-09-29] MEDS ORDERED: ACETAMINOPHEN 325 MG TAB PO PRN (05:20)
[2024-09-29 06:22] LABS: BASO # 0.1 10*3/uL (0.0-0.1); BASO % 0.6 % (0.0-1.0); EOS # 0.1 10*3/uL (0.0-0.4); EOS % 0.6 % (1.0-4.0); MEAN CELL VOLUME 91.2 fl (80.0-94.0); MEAN CORPUSCULAR HGB 29.5 pg (27.0-31.0); MEAN PLATELET VOLUME 11.4 fl (9.6-12.3); MONO # 0.8 10*3/uL (0.1-1.0); MONO % 9.5 % (3.0-9.0); NEUT # 5.5 10*3/uL (2.3-7.9); NEUT % 62.2 % (47.0-73.0); NUCLEATED RED BLOOD CELL 0.0 % (0.0-0.0); NUCLEATED RED BLOOD CELL 0.0 10*3/uL (0.0-0.0); PLATELET COUNT AUTOMATED 302 10*3/uL (130-400); RED CELL DISTRI WIDTH 14.5 % (0-14.5)
[2024-09-29] MEDS ORDERED: Technetium Tc 99M Tetrofosmi 0.23 MG KIT IJ SCH (07:10)
[2024-09-29 07:20] LABS: BUN 21 mg/dl (9-23)
[2024-09-29 07:30] VITALS: BP 120/80
[2024-09-29 07:49] LABS: VITAMIN D, 25-HYDROXY 38.3 ng/mL (30-100)
[2024-09-29] MEDS ORDERED: POTASSIUM CHLORIDE 20 MEQ TAB PO ONE (09:25)
[2024-09-29] MEDS ORDERED: EMPAGLIFLOZIN 10 MG TABLET PO SCH (10:00)
[2024-09-29] MEDS ORDERED: ATORVASTATIN CALCIUM 40 MG TABLET PO SCH (10:00)
[2024-09-29] MEDS ORDERED: METOPROLOL SUCCINATE XR 25 MG TAB PO SCH (10:00)
[2024-09-29] MEDS ORDERED: ASPIRIN ENTERIC COATED 81 MG TAB PO SCH (10:00)
[2024-09-29] MEDS ORDERED: BUMETANIDE 1 MG/4 ML VIAL IV SCH (10:00)
[2024-09-29] MEDS ORDERED: SPIRONOLACTONE 25 MG TAB PO SCH (10:00)
[2024-09-29] MEDS ORDERED: BUDESONIDE 0.5 MG AMP NEB SCH (12:38)
[2024-09-29] MEDS ORDERED: SODIUM CHLORIDE 0.9% 100 ML BAG IV ONE (12:40)
[2024-09-29] MEDS ORDERED: IOHEXOL 350 MG/ML 100 ML VIAL IV ONE ×2 (12:40→13:07)
[2024-09-29] MEDS ORDERED: SODIUM CHLORIDE 0.9% 100 ML IV ONE (13:06)
[2024-09-29] MEDS ORDERED: Albuterol Sulf/Ipratropium 3 ML VIAL NEB SCH (14:00)
[2024-09-29 15:20] VITALS: BP 146/100
[2024-09-29 16:27] VITALS: BP 112/74
[2024-09-29 17:54] VITALS: BP 106/76
[2024-09-29] MEDS ORDERED: RIVAROXABAN 20 MG TAB PO SCH (18:00)
[2024-09-29 20:00] VITALS: BP 111/78
[2024-09-29] MEDS ORDERED: LORazepam 0.5 MG TAB PO ONE (20:50)
[2024-09-29] MEDS ORDERED: GUAIFENESIN 600 MG TAB ER PO SCH (22:00)
[2024-09-30] VITALS: BP 120/86
[2024-09-30 06:28] LABS: BASO # 0.1 10*3/uL (0.0-0.1); BASO % 0.5 % (0.0-1.0); EOS # 0.1 10*3/uL (0.0-0.4); EOS % 0.7 % (1.0-4.0); MEAN CELL VOLUME 89.6 fl (80.0-94.0); MEAN CORPUSCULAR HGB 29.2 pg (27.0-31.0); MEAN PLATELET VOLUME 11.9 fl (9.6-12.3); MONO # 0.8 10*3/uL (0.1-1.0); MONO % 8.0 % (3.0-9.0); NEUT # 6.2 10*3/uL (2.3-7.9); NEUT % 61.9 % (47.0-73.0); NUCLEATED RED BLOOD CELL 0.0 % (0.0-0.0); NUCLEATED RED BLOOD CELL 0.0 10*3/uL (0.0-0.0); PLATELET COUNT AUTOMATED 301 10*3/uL (130-400); RED CELL DISTRI WIDTH 14.6 % (0-14.5)
[2024-09-30 07:02] LABS: SGPT/ALT 17 U/L (5-49)
[2024-09-30 07:10] LABS: BUN 33 mg/dl (9-23)
[2024-09-30 08:00] VITALS: BP 113/79
[2024-09-30 12:00] VITALS: BP 114/74
[2024-09-30 16:00] VITALS: BP 125/94
[2024-09-30 20:00] VITALS: BP 135/86
[2024-10-01] VITALS: BP 136/89
[2024-10-01] MEDS ORDERED: Regadenoson 0.4 MG/5 ML SYR IV ONE (05:23)
[2024-10-01 06:01] LABS: BASO # 0.0 10*3/uL (0.0-0.1); BASO % 0.1 % (0.0-1.0); EOS # 0.0 10*3/uL (0.0-0.4); EOS % 0.0 % (1.0-4.0); MEAN CELL VOLUME 90.8 fl (80.0-94.0); MEAN CORPUSCULAR HGB 29.7 pg (27.0-31.0); MEAN PLATELET VOLUME 12.4 fl (9.6-12.3); MONO # 1.0 10*3/uL (0.1-1.0); MONO % 5.9 % (3.0-9.0); NEUT # 13.8 10*3/uL (2.3-7.9); NEUT % 86.3 % (47.0-73.0); NUCLEATED RED BLOOD CELL 0.0 % (0.0-0.0); NUCLEATED RED BLOOD CELL 0.0 10*3/uL (0.0-0.0); PLATELET COUNT AUTOMATED 289 10*3/uL (130-400); RED CELL DISTRI WIDTH 14.4 % (0-14.5)
[2024-10-01 06:15] LABS: BUN 29 mg/dl (9-23)
[2024-10-01 12:00] VITALS: BP 125/74
[2024-10-01] MEDS ORDERED: Cyclobenzaprine Hydrochlorid 10 MG TAB PO ONE (12:40)
[2024-10-01 16:00] VITALS: BP 116/73
[2024-10-01 20:00] VITALS: BP 130/86
[2024-10-01] MEDS ORDERED: Acetaminophen/Hydrocodone 5 MG/325 MG TABLET PO PRN (20:30)
[2024-10-02] VITALS: BP 134/84
[2024-10-02 06:06] LABS: BASO # 0.0 10*3/uL (0.0-0.1); BASO % 0.2 % (0.0-1.0); EOS # 0.1 10*3/uL (0.0-0.4); EOS % 0.4 % (1.0-4.0); MEAN CELL VOLUME 91.6 fl (80.0-94.0); MEAN CORPUSCULAR HGB 29.0 pg (27.0-31.0); MEAN PLATELET VOLUME 12.1 fl (9.6-12.3); MONO # 1.0 10*3/uL (0.1-1.0); MONO % 5.9 % (3.0-9.0); NEUT # 14.7 10*3/uL (2.3-7.9); NEUT % 83.8 % (47.0-73.0); NUCLEATED RED BLOOD CELL 0.0 % (0.0-0.0); NUCLEATED RED BLOOD CELL 0.0 10*3/uL (0.0-0.0); PLATELET COUNT AUTOMATED 331 10*3/uL (130-400); RED CELL DISTRI WIDTH 14.7 % (0-14.5)
[2024-10-02 06:20] LABS: BUN 32 mg/dl (9-23)
[2024-10-02 08:00] VITALS: BP 122/95
[2024-10-02 12:00] VITALS: BP 123/103
[2024-10-02 16:00] VITALS: BP 116/80
[2024-10-02 20:00] VITALS: BP 122/92
[2024-10-03] VITALS: BP 142/84
[2024-10-03 06:14] LABS: BUN 37 mg/dl (9-23)
[2024-10-03 06:19] LABS: MEAN CELL VOLUME 93.5 fl (80.0-94.0); MEAN CORPUSCULAR HGB 29.4 pg (27.0-31.0); MEAN PLATELET VOLUME 12.2 fl (9.6-12.3); NUCLEATED RED BLOOD CELL 0.0 % (0.0-0.0); NUCLEATED RED BLOOD CELL 0.0 10*3/uL (0.0-0.0); PLATELET COUNT AUTOMATED 364 10*3/uL (130-400); RED CELL DISTRI WIDTH 15.1 % (0-14.5)
[2024-10-03 06:22] LABS: MANUAL DIFF REFLEX YES
[2024-10-03 06:53] LABS: PLATELET SUFFICIENCY NORMAL (NORMAL)
[2024-10-03 08:00] VITALS: BP 128/90
[2024-10-03] MEDS ORDERED: Albuterol Sulf/Ipratropium 3 ML VIAL NEB PRN (08:40)
[2024-10-03 12:00] VITALS: BP 123/94
[2024-10-03] MEDS ORDERED: DOCUSATE SODIUM 100 MG CAP PO ONE (12:40)
[2024-10-03 16:00] VITALS: BP 135/85
[2024-10-03 20:00] VITALS: BP 131/78
[2024-10-04] VITALS: BP 122/83
[2024-10-04 06:26] LABS: BUN 41 mg/dl (9-23)
[2024-10-04 06:45] LABS: BASO # 0.0 10*3/uL (0.0-0.1); BASO % 0.2 % (0.0-1.0); EOS # 0.0 10*3/uL (0.0-0.4); EOS % 0.1 % (1.0-4.0); MEAN CELL VOLUME 92.7 fl (80.0-94.0); MEAN CORPUSCULAR HGB 29.6 pg (27.0-31.0); MEAN PLATELET VOLUME 12.3 fl (9.6-12.3); MONO # 1.4 10*3/uL (0.1-1.0); MONO % 8.5 % (3.0-9.0); NEUT # 12.9 10*3/uL (2.3-7.9); NEUT % 77.0 % (47.0-73.0); NUCLEATED RED BLOOD CELL 0.0 % (0.0-0.0); NUCLEATED RED BLOOD CELL 0.0 10*3/uL (0.0-0.0); PLATELET COUNT AUTOMATED 323 10*3/uL (130-400); RED CELL DISTRI WIDTH 15.1 % (0-14.5)
[2024-10-04 08:00] VITALS: BP 126/91
[2024-10-04] MEDS ORDERED: predniSONE 10 MG TAB PO SCH (10:00)
[2024-10-04] MEDS ORDERED: BISACODYL 5 MG TAB PO SCH (10:00)
[2024-10-04] MEDS ORDERED: Ipratropium Brom3 ML NEB (11:01)
[2024-10-04] MEDS ORDERED: ALDACTONE25 MG PO (11:01)
[2024-10-04] MEDS ORDERED: JARDIANCE10 MG PO (11:01)
[2024-10-04 12:00] VITALS: BP 128/93
== END 2024-10-04 14:10 | disposition home or self-care (01) | DRG 133 ==
LOC: ED 20:17 → EDHOLD 09-29 04:42 → 4E 09-29 04:42
PROVIDERS: Internal Medicine; Student in an Organized Health Care Education/Training Program; ADMIT Internal Medicine; ATTEND Internal Medicine
PROC: 4A02XM4 Measurement of Cardiac Total Activity, External Approach (ICD-10-PCS; principal; 2024-10-01)
PROC: 3E073KZ Introduction of Other Diagnostic Substance into Coronary Artery, Percutaneous Approach (ICD-10-PCS; 2024-10-01)
DX: J96.01 Acute respiratory failure with hypoxia (principal); I50.23 Acute on chronic systolic (congestive) heart failure; J84.114 Acute interstitial pneumonitis; I42.9 Cardiomyopathy, unspecified; I11.0 Hypertensive heart disease with heart failure; N17.0 Acute kidney failure with tubular necrosis; J44.1 Chronic obstructive pulmonary disease with (acute) exacerbation; R73.9 Hyperglycemia, unspecified; D64.9 Anemia, unspecified; F17.210 Nicotine dependence, cigarettes, uncomplicated; M54.2 Cervicalgia; E87.6 Hypokalemia; Z86.74 Personal history of sudden cardiac arrest; Z86.711 Personal history of pulmonary embolism; Z88.8 Allergy status to other drugs, medicaments and biological substances; Z91.09 Other allergy status, other than to drugs and biological substances; Z79.899 Other long term (current) drug therapy; Z91.199 Patient's noncompliance with other medical treatment and regimen due to unspecified reason; Z79.01 Long term (current) use of anticoagulants; Z71.6 Tobacco abuse counseling; Z79.2 Long term (current) use of antibiotics; Z95.0 Presence of cardiac pacemaker; Z80.1 Family history of malignant neoplasm of trachea, bronchus and lung

== ENCOUNTER 2024-11-13 14:48 | Observation (INO) | payer OTHER ==
[~2024-11-13] VITALS: Wt 70.3 kg
[~2024-11-13 14:48] MED LIST changes: +Ipratropium Brom3 ML NEB
[2024-11-13 15:14] VITALS: BP 124/80
[2024-11-13] MEDS ORDERED: Ondansetron Hydrochloride 4 MG/2 ML VIAL IV ONE (15:30)
[2024-11-13] MEDS ORDERED: SODIUM CHLORIDE 0.9% 500 ML IV ONE (15:30)
[2024-11-13] MEDS ORDERED: SODIUM CHLORIDE 0.9% 100 ML BAG IV ONE (15:35)
[2024-11-13] MEDS ORDERED: IOHEXOL 350 MG/ML 100 ML VIAL IV ONE (15:35)
[2024-11-13 15:44] LABS: BASO # 0.1 10*3/uL (0.0-0.1); BASO % 0.7 % (0.0-1.0); EOS # 0.0 10*3/uL (0.0-0.4); EOS % 0.3 % (1.0-4.0); MEAN CELL VOLUME 90.9 fl (80.0-94.0); MEAN CORPUSCULAR HGB 29.0 pg (27.0-31.0); MEAN PLATELET VOLUME 11.3 fl (9.6-12.3); MONO # 0.8 10*3/uL (0.1-1.0); MONO % 8.9 % (3.0-9.0); NEUT # 6.4 10*3/uL (2.3-7.9); NEUT % 69.7 % (47.0-73.0); NUCLEATED RED BLOOD CELL 0.0 % (0.0-0.0); NUCLEATED RED BLOOD CELL 0.0 10*3/uL (0.0-0.0); PLATELET COUNT AUTOMATED 266 10*3/uL (130-400); RED CELL DISTRI WIDTH 15.7 % (0-14.5)
[2024-11-13 16:16] LABS: BUN 24 mg/dl (9-23)
[2024-11-13 18:38] LABS: BILIRUBIN Negative (Negative); BLOOD Negative (Negative); CLARITY Clear (Clear); COLOR Yellow (Yellow); KETONE Trace (Negative); LEUKO ESTERASE Negative (Negative); NITRITE Negative (Negative); PH 5.5 (4.5-8.0); SPECIFIC GRAVITY >= 1.030 (1.001-1.030); UROBILINOGEN 1.0 E.U./dl (0.0-1.0)
[2024-11-13 18:53] LABS: BACTERIA TRACE; RBC 0-2 rbc/hpf (0-2)
[2024-11-13 18:54] LABS: FINE GRANULAR CAST 0-2; MUCOUS TRACE
[2024-11-13 19:31] VITALS: BP 128/86
[2024-11-13 20:21] LABS: BUN 21 mg/dl (9-23); SGPT/ALT 14 U/L (5-49)
[2024-11-13] MEDS ORDERED: BISACODYL 10 MG SUPP R PRN (22:30)
[2024-11-13] MEDS ORDERED: Acetaminophen/Hydrocodone 5 MG/325 MG TABLET PO PRN (22:30)
[2024-11-13] MEDS ORDERED: ACETAMINOPHEN 325 MG TAB PO PRN (22:30)
[2024-11-13] MEDS ORDERED: Albuterol Sulf/Ipratropium 3 ML VIAL NEB PRN (22:30)
[2024-11-13] MEDS ORDERED: ACETAMINOPHEN 650 MG SUPP R PRN (22:30)
[2024-11-13] MEDS ORDERED: BISACODYL 5 MG TAB PO PRN (22:30)
[2024-11-13] MEDS ORDERED: BUMETANIDE 1 MG TAB PO ONE (23:40)
[2024-11-14 02:12] VITALS: BP 115/80
[2024-11-14 05:14] LABS: BUN 23 mg/dl (9-23); FREE T4 1.60 ng/dl (0.89-1.76); LDL CHOLESTEROL 114 mg/dL (9-159); SGPT/ALT 28 U/L (5-49)
[2024-11-14 06:21] LABS: BASO # 0.1 10*3/uL (0.0-0.1); BASO % 0.6 % (0.0-1.0); EOS # 0.0 10*3/uL (0.0-0.4); EOS % 0.1 % (1.0-4.0); MEAN CELL VOLUME 91.8 fl (80.0-94.0); MEAN CORPUSCULAR HGB 29.3 pg (27.0-31.0); MEAN PLATELET VOLUME 12.2 fl (9.6-12.3); MONO # 1.0 10*3/uL (0.1-1.0); MONO % 9.6 % (3.0-9.0); NEUT # 6.8 10*3/uL (2.3-7.9); NEUT % 66.1 % (47.0-73.0); NUCLEATED RED BLOOD CELL 0.0 % (0.0-0.0); NUCLEATED RED BLOOD CELL 0.0 10*3/uL (0.0-0.0); PLATELET COUNT AUTOMATED 266 10*3/uL (130-400); RED CELL DISTRI WIDTH 15.8 % (0-14.5)
[2024-11-14 06:28] LABS: ACT PARTIAL THROMBO TIME 29.4 SECONDS (20.0-32.1)
[2024-11-14 06:54] VITALS: BP 105/79
[2024-11-14 06:58] LABS: VITAMIN D, 25-HYDROXY 43.4 ng/mL (30-100)
[2024-11-14 07:49] VITALS: BP 112/75
[2024-11-14] MEDS ORDERED: BUMETANIDE 1 MG TAB PO SCH (10:00)
[2024-11-14] MEDS ORDERED: SPIRONOLACTONE 25 MG TAB PO SCH (10:00)
[2024-11-14] MEDS ORDERED: METOPROLOL SUCCINATE XR 25 MG TAB PO SCH (10:00)
[2024-11-14] MEDS ORDERED: RIVAROXABAN 20 MG TAB PO SCH (18:00)
== END 2024-11-14 07:59 | disposition short-term general hospital (02) ==
LOC: ED 14:48 → EDHOLD 22:21
PROVIDERS: Nurse Practitioner Family; Student in an Organized Health Care Education/Training Program; ADMIT Internal Medicine; ATTEND Internal Medicine
DX: R10.9 Unspecified abdominal pain (principal); I11.0 Hypertensive heart disease with heart failure; I50.23 Acute on chronic systolic (congestive) heart failure; K81.0 Acute cholecystitis; R00.0 Tachycardia, unspecified; R11.2 Nausea with vomiting, unspecified; J44.9 Chronic obstructive pulmonary disease, unspecified; F17.210 Nicotine dependence, cigarettes, uncomplicated; Z86.711 Personal history of pulmonary embolism; Z79.899 Other long term (current) drug therapy